=== PATIENT | female | born 1950 | race Hispanic/Latino ===

== ENCOUNTER 2017-04-14 19:45 | Inpatient (IN) | payer MEDICARE, MEDICAID ==
[2017-04-14 21:14] LABS: INR-International Normal Ratio 1.1; Prothrombin Time 14.8 SEC (12.0-14.7)
[2017-04-14 21:15] LABS: PTT 36.4 SEC (22.9-36.1)
[2017-04-14 21:30] LABS: #Eosinphils 0.1 thou/uL (0.0-0.7); #Lymphocytes 0.9 thou/uL (1.20-3.40); #Monocytes 0.5 thou/uL (0.11-0.59); #Neutrophils 6.6 thou/uL (1.40-6.50); %Basophils 0.5 % (0.0-1.0); %Eosinophils 0.6 % (0.0-10.0); %Lymphocytes 11.1 % (21.0-51.0); %Monocytes 6.5 % (0.0-10.0); %Neutrophils 81.2 % (42.0-75.0); Hemoglobin 10.8 g/dL (12.0-16.0); MDiff Complete? YES; Macrocytosis MODERATE=16-30 cells (100X) (0-5/hpf); Mean Corpuscular HGB CONC 32.9 g/dL (32.0-36.0); Mean Corpuscular Hemoglobin 37.8 pg (27.0-31.0); Mean Platelet Volume 10.1 fL (7.4-10.4); PLT Morphology Comment Appears Decreased; Platelet Count 44 thou/uL (130-400); RBC Distribution Width 11.8 % (11.5-14.5); Red Blood Cell (RBC) Count 2.87 mill/uL (4.20-5.40); White Blood Cell (WBC) Count 8.1 thou/uL (4.8-10.8)
[2017-04-14 21:33] LABS: ALT (SGPT) 16 U/L (8-55); AST (SGOT) 17 U/L (5-34); Albumin 3.9 g/dL (3.4-4.8); Alkaline Phosphatase 90 U/L (40-150); Anion Gap 15 mmol/L (10-20); BUN (Urea Nitrogen) 13 mg/dL (9.8-20.1); Bilirubin, Total 1.4 mg/dL (0.2-1.2); CK (CPK) 27 U/L (29-168); Calc. Creatinine Clearance 0 mL/min (70-130); Calcium 9.3 mg/dL (7.8-10.44); Carbon Dioxide 25 mmol/L (23-31); Chloride 101 mmol/L (98-107); Estimated GFR-MDRD Greater than 90; Globulin 2.3 g/dL (2.4-3.5); Glucose 131 mg/dL (80-115); Potassium 3.9 mmol/L (3.5-5.1); Protein, Total 6.2 g/dL (6.0-8.3); Sodium 137 mmol/L (136-145)
[2017-04-14 21:33] LABS: Bilirubin Negative (Negative); Blood, Urine Negative (Negative); Clarity CLOUDY (Clear); Glucose, Urine (Dipstick) Negative (Negative); Leukocyte Small (Negative); Nitrite Positive (Negative); Protein, Urine (Dipstick) Negative (Neg-Trace); Specific Gravity, Urine 1.017 (1.002-1.036)
[2017-04-14 21:34] LABS: CKMB 1.1 ng/mL (0-6.6); Troponin I Less than 0.010 ng/mL (< 0.028)
[2017-04-14 21:39] LABS: Bacteria/HPF 4+ HPF (None Seen); Hyaline Casts/LPF 0-3 HYALINE CAST LPF (0-3 Hyaline); RBC/HPF None Seen HPF (0-3); Squamous Epithelial 0-3 HPF (0-3)
--- NOTE | 2017-04-14 22:44 | CT ---
CT BRAIN WITHOUT CONTRAST 04/14/17 HISTORY: Altered mental status, seizure. FINDINGS: Comparison made to exam of 12/26/15. Changes or cortical atrophy again seen. Ventricular size is stable. No evidence of acute infarct, hem orrhage, midline shift, or abnormal extra-axial fluid collections are noted. The bony calvarium is intact. There is an air fluid level in the left sphenoid sinus. Postop changes in the anterior wall of the right maxilla are again seen. IMPRESSION: No CT evidence of acute intracranial process. POS: [facility]
[2017-04-15 01:56] LABS: Troponin I Less than 0.010 ng/mL (< 0.028)
[2017-04-15 05:23] LABS: Troponin I Less than 0.010 ng/mL (< 0.028)
[2017-04-15] MEDS ORDERED: cefTRIAXone\\ROCEPHIN 1 GM in Sodium Chloride 0.9% 100 ML IVPB SCH (09:15)
--- NOTE | 2017-04-15 10:03 | HP ---
DATE OF ADMISSION: 04/15/2017 CHIEF COMPLAINT: Seizures. HISTORY OF PRESENT ILLNESS: This is a 66-year-old white female shelter resident with known past medical history of esophageal neoplasm with Sanders's esophagus. The patient also has a known histo ry of coronary artery disease, history of bipolar disorder with schizophrenia. The patient was noted to have a seizure last night at the shelter witnessed by shelter staff. It was a tonic cl onic type, the patient was thrashing her hands and legs and was unconscious. The patient was immedia tely brought to the ER through EMS and had a CT of the head done which was negative for any intracran ial hemorrhage. The patient did not have previous seizures according to the medical records. The pa emmanuel was noted to have a urinary tract infection with nitrite being positive. The patient was given Ativan for seizure control. The patient has been out of it since then. Today, the patient was seen in the ER, she was completely disoriented and sleeping, unable to give any history at this time. Mo st of the history is obtained by the nursing staff and the ER physicians. PAST MEDICAL HISTORY: 1. Coronary artery disease. 2. History of paranoid schizophrenia. 3. Sanders's esophagus. 4. Type 2 diabetes mellitus. 5. Depression. 6. Hypertension. 7. Hyperlipidemia. PAST SURGICAL HISTORY: 1. CABG in 2010. 2. Previous C-sections. 3. A history of aortic valve replacement. 4. Left hip surgery in 2010. FAMILY HISTORY: Known history of colon cancer in the family. This is from her medical records, unab le to confirm with a family member. SOCIAL HISTORY: The patient is an ex-smoker, quit in 2000. She had a history of heavy alcohol use, quit more than 15 years ago. She is disabled and she is in a shelter, resident of [place]. ALLERGIES: No known drug allergies. HOME MEDICATIONS: 1. Acetaminophen. 2. Bupropion 300 mg p.o. daily. 3. Buspirone 5 mg p.o. daily. 4. Calcium carbonate. 5. Cetirizine 10 mg daily. 6. Cholecalciferol 2000 units capsules daily. 7. Lisinopril 40 mg p.o. daily. 8. Ferrous sulfate 325 mg p.o. daily. 9. Insulin Glargine, unknown dose. 10. Loperamide 2 mg capsule. 11. Ondansetron, Zofran 8 mg p.o. q.6 hours p.r.n. 12. Pravastatin 40 mg p.o. at bedtime. 13. Senokot 2 tablets p.o. b.i.d. REVIEW OF SYSTEMS: Unable to obtain any review of systems, the patient is completely lethargic and w ith the effect of the Ativan. PHYSICAL EXAMINATION: VITAL SIGNS: Blood pressure is 110/80, heart rate is 78, respiratory rate 18, saturation 98% on room air. GENERAL: The patient is seen lying in the bed supine and sleeping comfortably. HEENT: Atraumatic, normocephalic. PERRLA. Extraocular movements were intact. Oral mucosa is pink a nd moist. CARDIOVASCULAR: S1, S2 normal. No murmurs, rubs or gallops. LUNGS: Bilateral air entry was equal. No wheezing, no crackles. ABDOMEN: Soft, nontender, no guarding, no rebound tenderness. Bowel sounds normal. MUSCULOSKELETAL: No calf tenderness. No pedal edema. No joint tenderness. Has emaciated appearanc e with muscle atrophy noted in the lower extremities. No calf tenderness. NEUROLOGIC: Cranial nerve examination could not be done as the patient is sleeping and with effect o f the medication. LYMPHADENOPATHY: No evidence of any lymph nodes were noted. Inguinal and cervical lymph nodes were checked. PSYCHIATRIC: The patient is lying down peacefully at this time. Otherwise, no evidence of agitation was noted. NECK: No thyromegaly. No lymphadenopathy was noted. LABORATORY DATA: Urine was positive for nitrite and positive for leukocyte esterase with WBCs and ba cteria. Potassium 3.7. Sodium is 137, potassium 3.9, chloride is 101, BUN 13, creatinine 0.6, blood sugar 13 1. Total bilirubin 1.4. INR 1.1. WBC 8.1, hemoglobin is 10.8, hematocrit 32.9, MCV is 115, platelets are 44. CT of the head was done showing no evidence of any acute intracranial hemorrhage. ASSESSMENT AND PLAN: 1. Acute seizure episode. 2. Acute urinary tract infection. 3. Anemia of iron deficiency. 4. Acute thrombocytopenia. 5. History of an esophageal neoplasm with Sanders's esophagus. 6. History of coronary artery disease. 7. History of hypertension. 8. History of type 2 diabetes mellitus. 9. History of schizophrenia. PLAN: 1. Plan is admit this patient and closely monitor. We will consult Neurology. The patient will be started on a loading dose of fosphenytoin for her weight in the range of 40-60. We will do Ativan 2 mg as needed with every seizure every 15 minutes until the seizure stops. I will closely monitor her airway to look for any evidence of aspiration. The patient has no history of previous seizures in t he past. No evidence of any hypoglycemia was reported at the time of the seizures. We will closely monitor this patient at this time. We will do an MRI of the brain with and without contrast as she h as a history of Sanders's esophagus with a neoplasm in the past. We will do seizure precautions. 2. The patient has history of urinary tract infection. We will start the patient on Rocephin 1 gram IV daily and wait for the urine cultures and sensitivities. 3. The patient has history of type 2 diabetes mellitus. She is on insulin unknown dose. Most likel y seizure could be related to hypoglycemia. We will do only sliding scale insulin at this time and a void any long-acting insulins. We will check for hemoglobin A1C. 4. History of anemia. The patient is noted to have a low hemoglobin and a high MCV. We will check for the folic acid and B12 levels. The patient has microcytic anemia and will check for iron levels. 5. The patient has thrombocytopenia with platelets of 44. We will closely monitor. Avoid any antic oagulation at this time and will repeat labs in the morning. 6. The patient has history of coronary artery disease with history of coronary artery bypass graftin g. We will monitor and look for any evidence of chest pains or any elevated troponins as much as pos sible. We will restart the patient on aspirin. The patient is not on any beta froy at this time. 7. DVT prophylaxis. SCDs and monitor. I spent 70 minutes with this patient, of this 1 hour is critical care time.
[2017-04-15] MEDS ORDERED: Ondansetron HCl/PF 4 MG/2 ML Vial IVP PRN (14:26)
[2017-04-15] MEDS ORDERED: HYDROcodone/Acetaminophen 5/325 mg Tablet PO PRN (14:26)
[2017-04-15] MEDS ORDERED: Acetaminophen 325 MG TAB PO PRN (14:26)
[2017-04-15] MEDS ORDERED: Lorazepam 2 MG/ML VIAL SLOW IVP PRN (14:26)
[2017-04-15 15:03] LABS: Amphetamine Not Detected (NotDetected); Barbiturates Screen Not Detected (NotDetected); Benzodiazepine Screen Not Detected (NotDetected); Cocaine Metabolite Screen Not Detected (NotDetected); Medtox Reader # READER 4; Methadone Not Detected (NotDetected); Methamphetamine Not Detected (NotDetected); Opiate Screen Not Detected (NotDetected); Oxycodone Screen Not Detected (NotDetected); Phencyclidine (PCP) Not Detected (NotDetected); THC/Cannabinoid Screen Not Detected (NotDetected); Tricyclic Screen Detected (NotDetected)
[2017-04-15 15:04] LABS: Medtox Control Line Valid? VALID (VALID)
[2017-04-15] MEDS: Sodium Chloride 0.9% 1,000 ML IV SCH ×2 (15:48→23:31)
[2017-04-15] MEDS: Fosphenytoin Sodium 100 MG in Sodium Chloride 0.9% 50 ML IVPB SCH (20:50)
[2017-04-15] MEDS: Famotidine/PF 20 mg/2ml Vial SLOW IVP SCH (20:51)
[2017-04-15] MEDS: Docusate 100 MG CAP PO SCH (20:53)
[2017-04-15 21:12] VITALS: BMI 19.7
[2017-04-16] MEDS ORDERED: cefTRIAXone\\ROCEPHIN 1 GM, Syringe 0.4 ML in Sterile Water 9.6 ML SLOW IVP SCH (01:00)
[2017-04-16 06:13] LABS: Anion Gap 10 mmol/L (10-20); BUN (Urea Nitrogen) 7 mg/dL (9.8-20.1); Calc. Creatinine Clearance 94 mL/min (70-130); Calcium 8.1 mg/dL (7.8-10.44); Carbon Dioxide 23 mmol/L (23-31); Chloride 113 mmol/L (98-107); Estimated GFR-MDRD Greater than 90; Glucose 84 mg/dL (80-115); Potassium 3.3 mmol/L (3.5-5.1); Sodium 143 mmol/L (136-145)
[2017-04-16 06:18] LABS: #Eosinphils 0.1 thou/uL (0.0-0.7); #Lymphocytes 1.2 thou/uL (1.20-3.40); #Monocytes 0.4 thou/uL (0.11-0.59); #Neutrophils 3.3 thou/uL (1.40-6.50); %Basophils 0.5 % (0.0-1.0); %Eosinophils 1.2 % (0.0-10.0); %Monocytes 7.6 % (0.0-10.0); %Neutrophils 66.7 % (42.0-75.0); Mean Corpuscular HGB CONC 33.8 g/dL (32.0-36.0); Mean Corpuscular Hemoglobin 39.2 pg (27.0-31.0); Platelet Count 47 thou/uL (130-400); RBC Distribution Width 11.8 % (11.5-14.5); Red Blood Cell (RBC) Count 2.55 mill/uL (4.20-5.40)
--- NOTE | 2017-04-16 08:49 | EEG ---
Referring Physician: Jimmie TROTTER EEG # [id number] TEST TYPE: ROUTINE PORTABLE INPATIENT REPORT: AN EEG USING THE INTERNATIONAL TEN-TWENTY SYSTEM OF ELECTRODE PLACEMENT WAS PERFORMED. The best waking background is a poorly maintained 8 hertz alpha frequency. The dominant frequency is low amplitude theta and some delta activity over both hemispheres. No sleep transients were seen. Photic stimulation was unremarkable. No epileptiform features were present. IMPRESSION: THIS IS AN ABNORMAL STUDY FOR THE FINDINGS OF DIFFUSE SLOWING CONSISTENT WITH A DIFFUSE ENCEPHALOPATHIC PROCESS. Advanced Manufacturing Associate: LEILANI Business Operations Manager: EEG.PRINCE REGAALDO
[2017-04-16] MEDS ORDERED: Enoxaparin Sodium 40 MG/0.4 ML SYRINGE SC SCH (09:00)
[2017-04-16 10:45] LABS: Hemoglobin A1c 5.1 % (4.0-6.0)
[2017-04-16] MEDS: Famotidine/PF 20 mg/2ml Vial SLOW IVP SCH ×2 (11:46→21:44)
[2017-04-16] MEDS: Docusate 100 MG CAP PO SCH ×2 (11:46→20:15)
[2017-04-16] MEDS ORDERED: Lorazepam 2 MG/ML VIAL SLOW IVP SCH (15:15)
[2017-04-16] MEDS: Fosphenytoin Sodium 100 MG in Sodium Chloride 0.9% 50 ML IVPB SCH (15:23)
[2017-04-16] MEDS: Sodium Chloride 0.9% 1,000 ML IV SCH ×3 (15:23→21:45)
--- NOTE | 2017-04-16 16:08 | PDOC.PN ---
- Subjective Encounter Start Date: 04/16/17 Encounter Start Time: 15:30 robert is seen today, called by nurse for Worsening mental status, Ree was alert but disoriented,. She is admitted with newe onset Seizure on Fosphenytoin , with UTI, urine cultures grwing gram Neg Rods. - Objective Resuscitation Status: Resuscitation Status FULL:Full Resuscitation MAR Reviewed: Yes Vital Signs & Weight: Vital Signs (12 hours) Temp Pulse Pulse Pulse Pulse Resp BP 04/16/17 15:45 97.5 F L 112 H 18 04/16/17 11:53 98.3 F 98 18 04/16/17 09:40 91 100 121/72 04/16/17 07:38 91 96 95 105/72 04/16/17 07:20 98.5 F 91 18 BP BP BP Pulse Ox 04/16/17 15:45 92 L 04/16/17 11:53 108/72 96 04/16/17 09:40 121/76 04/16/17 07:38 95/66 105/64 04/16/17 07:20 101/61 97 Weight Weight 129 lb 12.8 oz I&O: 04/15/17 04/16/17 04/17/17 06:59 06:59 06:59 Intake Total 3195 Balance 3195 Result Diagrams: 04/16/17 05:18 04/16/17 05:18 Additional Labs: Accuchecks 04/16/17 04/16/17 04/16/17 14:21 10:53 05:57 POC Glucose 167 H 114 H 86 04/15/17 04/15/17 04/15/17 23:35 22:07 21:00 POC Glucose 89 50 L* 52 L* Radiology Reviewed by me: Yes EKG Reviewed by me: Yes Phys Exam - Physical Examination HEENT: PERRLA, moist MMs Neck: no nodes, no JVD Respiratory: no wheezing, no rales Cardiovascular: RRR, no significant murmur Gastrointestinal: soft, non-tender Musculoskeletal: no edema, pulses present Neurological: non-focal, normal sensation Lymphatic: no nodes Skin: no rash, normal turgor Dx/Plan (1) Septic shock Code(s): A41.9 - SEPSIS, UNSPECIFIED ORGANISM; R65.21 - SEVERE SEPSIS WITH SEPTIC SHOCK Status: Acute (2) Acute UTI Code(s): N39.0 - URINARY TRACT INFECTION, SITE NOT SPECIFIED Status: Acute (3) Seizure Code(s): R56.9 - UNSPECIFIED CONVULSIONS Status: Acute (4) Hypoglycemia associated with type 2 diabetes mellitus Code(s): E11.649 - TYPE 2 DIABETES MELLITUS WITH HYPOGLYCEMIA WITHOUT COMA Status: Acute - Plan cont current plan of care, continue antibiotics, DVT proph w/lovenox Plan: - Will transfer pt to ICU, pt has low blood pressures Not responding to IV fluid bolus, Start on LEvophed 8mg/250ml tittrate to keep MAP >65 - Will consult Critical care for further care - Will change Abx to Cefepime 1gm BID, Urine cultures growing gram neg rods. - Will check lactic Acid, will do Crp and blood Cultures Repeat, - Will need to order Echo if BP do not respond to fluids and Levophed. Will then do Troponins and EKG. - Clayt had hypoglycemia now improving, will continue with SSI - Seizures, pt is Started on Fosphenytoin, Neurology consulted. pending MRI today, pt could go for it due to Drop in her BP. - Discharge Day Encounter end time: 16:15 Review of Systems - Review of Systems Other: Unable to get any ROS due to AMS - Medications/Allergies Allergies/Adverse Reactions: Allergies Allergy/AdvReac Type Severity Reaction Status Date / Time No Known Allergies Allergy Verified 04/15/17 09:53 Medications: Current Medications Acetaminophen (Tylenol) 650 mg PO Q4H PRN PRN Reason: Headache/Fever or Pain Hydrocodone Bitart/Acetaminophen ([place] 5/325) 1 tab PO Q4H PRN PRN Reason: Moderate Pain (4-6) Docusate Sodium (Colace) 100 mg PO BID [facility] Last Admin: 04/16/17 11:46 Dose: Not Given Enoxaparin Sodium (Lovenox) 40 mg SC 0900 [facility] Last Admin: 04/16/17 11:47 Dose: Not Given Famotidine (Pepcid) 20 mg SLOW IVP Q12HR [facility] Last Admin: 04/16/17 11:46 Dose: Not Given Fosphenytoin Sodium 100 mg/ (Sodium Chloride) 52 mls @ 100 mls/hr IVPB Q12HR [facility] Last Admin: 04/16/17 15:23 Dose: 52 mls Sodium Chloride (Normal Saline 0.9%) 1,000 mls @ 100 mls/hr IV .Q10H [facility] Last Admin: 04/16/17 15:23 Dose: 1,000 mls Cefepime HCl 2 gm/ Sodium (Chloride) 100 mls @ 200 mls/hr IVPB Q12HR [facility] Norepinephrine Bitartrate (Levophed) 250 mls @ 0 mls/hr IVPB INF [facility]; Titrate PRN Reason: Protocol Sodium Chloride (Normal Saline 0.9%) 1,000 mls @ 0 mls/hr IV .Q0M [facility] PRN Reason: As Directed Lorazepam (Ativan) 2 mg SLOW IVP Q15MIN PRN PRN Reason: Seizures Lorazepam (Ativan) 0.5 mg SLOW IVP NOW [facility] Stop: 04/16/17 18:00 Ondansetron HCl (Zofran) 4 mg IVP Q6H PRN PRN Reason: Nausea/Vomiting
[2017-04-16] MEDS ORDERED: Sodium Chloride 0.9% 1,000 ML IV SCH (16:15)
[2017-04-16] MEDS ORDERED: Norepinephrine 8 MG/0.9% NS 250 ML IVPB SCH (16:15)
--- NOTE | 2017-04-16 17:08 | RAD ---
FRONTAL VIEW CHEST: Comparison: 12-26-15 Indication: Sepsis. FINDINGS: There is patchy left basilar opacity. There is prominence of the perihilar regions bilaterally. Cardi omediastinal silhouette remains prominent. Stable deformities of the ribs bilaterally are present. No additional significant interval change. IMPRESSION: 1. Pleural and parenchymal density at the left hemithorax indicating pleural fluid, atelectasis, or p neumonia. 2. Bilateral prominence of each perihilar region could be on the basis of edema. Underlying soft tiss ue pathology is not entirely excluded. 3. Recommend continued imaging follow up to confirm resolution. POS: [facility]
[2017-04-16 18:18] LABS: #Lymphocytes 0.5 thou/uL (1.20-3.40); #Monocytes 0.5 thou/uL (0.11-0.59); #Neutrophils 8.2 thou/uL (1.40-6.50); %Basophils 0.1 % (0.0-1.0); %Eosinophils 0.3 % (0.0-10.0); %Lymphocytes 5.5 % (21.0-51.0); %Monocytes 5.6 % (0.0-10.0); %Neutrophils 88.5 % (42.0-75.0); Hemoglobin 9.7 g/dL (12.0-16.0); Mean Corpuscular Hemoglobin 37.5 pg (27.0-31.0); Platelet Count 39 thou/uL (130-400); RBC Distribution Width 11.8 % (11.5-14.5); Red Blood Cell (RBC) Count 2.59 mill/uL (4.20-5.40); White Blood Cell (WBC) Count 9.3 thou/uL (4.8-10.8)
[2017-04-16 18:42] LABS: ALT (SGPT) 16 U/L (8-55); AST (SGOT) 19 U/L (5-34); Albumin 2.8 g/dL (3.4-4.8); Alkaline Phosphatase 64 U/L (40-150); Anion Gap 12 mmol/L (10-20); BUN (Urea Nitrogen) 12 mg/dL (9.8-20.1); CRP (Inflammatory) Less than 0.50 mg/dL (= or < 0.5); Calc. Creatinine Clearance 71 mL/min (70-130); Calcium 7.3 mg/dL (7.8-10.44); Carbon Dioxide 19 mmol/L (23-31); Chloride 117 mmol/L (98-107); Estimated GFR-MDRD 82; Globulin 1.6 g/dL (2.4-3.5); Glucose 151 mg/dL (80-115); Potassium 3.6 mmol/L (3.5-5.1); Protein, Total 4.4 g/dL (6.0-8.3); Sodium 144 mmol/L (136-145)
[2017-04-16] MEDS ORDERED: Loperamide HCl 2 MG CAP PO PRN (20:35)
[2017-04-16] MEDS ORDERED: Loperamide HCl 2 MG CAP PO SCH (20:45)
[2017-04-16] MEDS ORDERED: Cefepime 2 GM in Sodium Chloride 0.9% 100 ML IVPB SCH (21:00)
[2017-04-16] MEDS: Cefepime 2 GM, Syringe 2.5 ML in Sterile Water 10 ML SLOW IVP SCH (21:47)
--- NOTE | 2017-04-17 02:43 | CON ---
DATE OF CONSULTATION: 04/16/2017 REFERRING PHYSICIAN: Scott Macdonald MD REASON FOR CONSULTATION: New onset seizure. HISTORY OF PRESENT ILLNESS: Ms. Muniz is a pleasant 66-year-old female, who has been c onsidered for evaluation of possible seizure-like activity. History is very limited as patient is un able to provide. The social history is obtained from the patient's medical chart and nurse, who was taking care of the patient. Apparently, the patient has a history of esophageal cancer with Sanders esophagus, bipolar disorder, and schizophrenia. She is a snf resident. She was noted by a snf staff to have seizure-like activity, where she had tonic-clonic convulsions and she was unresponsive during that time. She was brought to via EMS to the emergency room. She has not had an y seizure-type activity since being admitted to the hospital. She has been transferred to the ICU fo r hypotensive episode. I am being asked to further evaluate for this seizure-type activity that resu lted in her admission. PAST MEDICAL HISTORY: Significant for history of Sanders's esophagus with esophageal cancer, hyperte nsion, hyperlipidemia, diabetes, depression, coronary artery disease, and paranoid schizophrenia. PAST SURGICAL HISTORY: Significant for CABG in 2010, C-sections, aortic valve replacement, and left hip surgery. FAMILY HISTORY: None significant. SOCIAL HISTORY: She is an ex-smoker. She has not smoked since 2000. She has a history of heavy alc ohol use, but quit more than 15 years ago. She is disabled and currently resides in the snf . MEDICATIONS: Please review MAR. ALLERGIES: No known drug allergies. REVIEW OF SYSTEMS: As mentioned in the HPI, otherwise negative. PHYSICAL EXAMINATION: VITAL SIGNS: Blood pressure of 89/49, pulse of 107, respirations of 23, O2 sats of 100% on room air, temperature of 98.2. GENERAL: Cachectic-appearing female, in no apparent distress. RESPIRATORY: Clear to auscultation bilaterally. CARDIOVASCULAR: Regular rate and rhythm. NEUROLOGICAL: Mental status: Patient is awake, alert, oriented x1. Speech and language: Fluent sp eech. Cranial nerves: Pupils are 3 mm and reactive. Visual farias are intact. External muscles ar e intact. Face appears symmetric. Tongue and uvula are midline. Motor exam showed normal tone and bulk with 5/5 strength in both lower extremities. Babinski: Plantar responses flexion bilaterally. Sensory: Sensation is intact and symmetric. Deep tendon reflexes 1+ reflex in both upper extremiti es. LABORATORY DATA: Labs are reviewed, which included CBC, CMP, TSH, ESR, CRP, urinalysis, and urine dr ug screen, which is significant for PT of 14.8, PTT of 36.4, calcium of 7.3, glucose of 167. Urinaly sis showed small leukocyte esterase and positive nitrites with 4+ bacteria and 7-10 wbc. IMAGING STUDIES: CT head without contrast was reviewed, which showed no acute intracranial abnormali ty. EEG report was reviewed, which showed diffuse slowing without any epileptiform discharges or sub transients. IMPRESSION: Altered mental status, likely metabolic encephalopathy. Ms. Muniz is a pleasant 66- year-old -[place] female, who presented with the seizure-like episode. Given that this is he r first episode, I would not recommend sending her on any antiepileptic medication. Her recent confu chad is likely metabolic encephalopathy. Continue supportive care. No further neurological workup n eeded from my standpoint. Thank you for the consultation.
[2017-04-17] MEDS: Sodium Chloride 0.9% 1,000 ML IV SCH ×3 (05:48→20:14)
--- NOTE | 2017-04-17 06:03 | CON ---
DATE OF CONSULTATION: 04/16/2017 CONSULTING PHYSICIAN: Dr. Macdonald from the Hospitalist group. REASON FOR CONSULTATION: Critical care management for hypotension. HISTORY OF PRESENT ILLNESS: This is a 66-year-old female who is currently hospitalized for treatment of seizures. She was noted to be hypotensive earlier today. She is fairly disoriented and cannot g willie me much in the way of history from what I can ascertain from the chart. She became hypotensive e arlier. She was brought to the CCU, but was found to be normotensive when she arrived. PAST MEDICAL HISTORY: 1. Coronary artery disease. 2. Paranoid schizophrenia. 3. Sanders's esophagus. 4. Diabetes mellitus type 2. 5. Depression. 6. Hypertension. 7. Hyperlipidemia. PAST SURGICAL HISTORY: 1. Coronary artery bypass grafting surgery. 2. C-sections. 3. Aortic valve replacement. 3. Left hip surgery. FAMILY MEDICAL HISTORY: Colon cancer. SOCIAL HISTORY: The patient quit smoking many years ago. Formerly abused alcohol, quit 15 years ago . Lives in a long term. ALLERGIES: None. MEDICATIONS PRIOR TO ADMISSION: Acetaminophen, bupropion, buspirone, calcium carbonate, cetirizine, Cholecalciferol, lisinopril, iron sulfate, insulin, loperamide, ondansetron, pravastatin, Senokot. REVIEW OF SYSTEMS: Twelve point review of systems cannot be obtained due the patient's disorientatio n. PHYSICAL EXAMINATION: VITAL SIGNS: Pulse 109, blood pressure 72/49, respiratory rate 27, O2 sat 94%. GENERAL: She is awake and in no distress. HEENT: Unremarkable. NECK: Without adenopathy or JVD. LUNGS: Clear without wheezing or rhonchi. CARDIOVASCULAR: S1, S2 regular. ABDOMEN: Soft. EXTREMITIES: No edema. No palpable lymphadenopathy, no skin lesions noted. LABORATORY DATA: White blood cell count 5, hemoglobin 10, hematocrit 29, platelet count 47. There i s no left shift. Sodium 143, potassium 3.3, chloride 113, CO2 of 23, BUN 7, creatinine 0.5, glucose 84. Chest x-ray from the time of admission showed no active infiltrates. ASSESSMENT: Transient hypotension -- I am not sure why she is so hypotensive unless she is dry or th is is medication reaction, perhaps to the Dilantin. The patient may also have relative adrenal insuf ficiency. PLAN: We would bolus her with fluids. I think what we are seeing is probably erroneous. Continue a ntibiotics for the time being, we will await the results of lactate.
[2017-04-17 06:11] LABS: #Lymphocytes 1.4 thou/uL (1.20-3.40); #Monocytes 0.6 thou/uL (0.11-0.59); #Neutrophils 8.7 thou/uL (1.40-6.50); %Basophils 0.4 % (0.0-1.0); %Eosinophils 0.2 % (0.0-10.0); %Lymphocytes 13.3 % (21.0-51.0); %Monocytes 5.3 % (0.0-10.0); %Neutrophils 80.9 % (42.0-75.0); Hemoglobin 8.9 g/dL (12.0-16.0); Mean Corpuscular HGB CONC 31.5 g/dL (32.0-36.0); Mean Corpuscular Hemoglobin 37.1 pg (27.0-31.0); Mean Platelet Volume 10.5 fL (7.4-10.4); Platelet Count 42 thou/uL (130-400); RBC Distribution Width 12.2 % (11.5-14.5); White Blood Cell (WBC) Count 10.7 thou/uL (4.8-10.8)
[2017-04-17 06:22] LABS: Anion Gap 11 mmol/L (10-20); BUN (Urea Nitrogen) 12 mg/dL (9.8-20.1); Calc. Creatinine Clearance 82 mL/min (70-130); Calcium 6.9 mg/dL (7.8-10.44); Carbon Dioxide 16 mmol/L (23-31); Chloride 118 mmol/L (98-107); Estimated GFR-MDRD Greater than 90; Glucose 104 mg/dL (80-115); Potassium 3.4 mmol/L (3.5-5.1); Sodium 142 mmol/L (136-145)
[2017-04-17] MEDS ORDERED: Potassium Chloride 40 MEQ in Premix Bag 1 BAG IVPB SCH (08:30)
--- NOTE | 2017-04-17 08:47 | PRG ---
DATE OF SERVICE: 04/17/2017 The patient did reasonably well overnight, still has a low blood pressure. PHYSICAL EXAMINATION: VITAL SIGNS: Temperature is 98.0, pulse 99, blood pressure 85/50, O2 sat 100%, respiratory rate 20, 24 hour intake 4696, output 1430. HEENT: Remarkable for poor dentition. NECK: No JVD. LUNGS: Clear to auscultation. CARDIOVASCULAR: S1, S2 regular. ABDOMEN: Soft. EXTREMITIES: No edema. LABORATORY DATA: Sodium 142, potassium 3.4, chloride 118, CO2 16, BUN 12, creatinine 0.6, glucose 10 4. White blood cell count 10, hematocrit 28.3, platelet count 42. Urine culture has resultant E. co li which is sensitive to everything except for ampicillin. ASSESSMENT: 1. Urosepsis. 2. Volume depletion. 3. Hypoalbuminemia. 4. Possible seizure at the time of admission. 5. No evidence of adrenal insufficiency. PLAN: 1. Reassess potential for transfer from the ICU this afternoon. 2. Given albumin. 3. Given continued low blood pressure would empirically give some steroids.
[2017-04-17] MEDS: Cefepime 2 GM, Syringe 2.5 ML in Sterile Water 10 ML SLOW IVP SCH ×2 (08:52→21:10)
[2017-04-17] MEDS: Albumin 25% 25 GM/100 ML BOT IVPB SCH ×3 (08:53→20:15)
[2017-04-17] MEDS: Famotidine/PF 20 mg/2ml Vial SLOW IVP SCH ×2 (08:54→20:15)
[2017-04-17] MEDS: Docusate 100 MG CAP PO SCH ×2 (08:54→20:15)
[2017-04-17] MEDS ORDERED: Potassium Chloride 40 MEQ in Sodium Chloride 0.9% 250 ML 250 ML IVPB SCH (10:00)
[2017-04-17] MEDS: Hydrocortisone Sod Succ/PF 100 mg/2 ml Vial IVP SCH ×2 (13:26→19:33)
--- NOTE | 2017-04-17 15:50 | PDOC.PN ---
- Subjective Encounter Start Date: 04/17/17 Encounter Start Time: 13:00 Patient is seen today, alert and oriented. no other concern snoted. Explained pt could go home tomorrow. - Objective MAR Reviewed: Yes Vital Signs & Weight: Vital Signs (12 hours) Temp Pulse Resp Pulse Ox 04/17/17 11:00 98.7 F 04/17/17 07:17 98.0 F 99 18 100 04/17/17 07:00 98.0 F 04/17/17 05:00 98.2 F Weight Admit Weight 129 lb Weight 129 lb 12.8 oz Most Recent Monitor Data Heart Rate from ECG 102 NIBP 112/58 NIBP BP-Mean 78 Respiration from ECG 21 SpO2 99 I&O: 04/16/17 04/17/17 04/18/17 06:59 06:59 06:59 Intake Total 3696 560 Output Total 1430 355 Balance 2266 205 Result Diagrams: 04/17/17 05:44 04/17/17 05:44 Additional Labs: Accuchecks 04/17/17 04/17/17 11:36 05:52 POC Glucose 162 H 99 Radiology Reviewed by me: Yes EKG Reviewed by me: Yes Phys Exam - Physical Examination HEENT: PERRLA, moist MMs Neck: no nodes, no JVD Respiratory: no wheezing, clear to auscultation bilateral Cardiovascular: RRR, no significant murmur Gastrointestinal: soft, non-tender Musculoskeletal: no edema, pulses present Neurological: non-focal, normal sensation Lymphatic: no nodes Psychiatric: normal affect, A&O x 3 Dx/Plan (1) Septic shock Code(s): A41.9 - SEPSIS, UNSPECIFIED ORGANISM; R65.21 - SEVERE SEPSIS WITH SEPTIC SHOCK Status: Acute (2) Acute UTI Code(s): N39.0 - URINARY TRACT INFECTION, SITE NOT SPECIFIED Status: Acute (3) Seizure Code(s): R56.9 - UNSPECIFIED CONVULSIONS Status: Acute (4) Hypoglycemia associated with type 2 diabetes mellitus Code(s): E11.649 - TYPE 2 DIABETES MELLITUS WITH HYPOGLYCEMIA WITHOUT COMA Status: Acute - Plan continue antibiotics, PT/OT, social and human services assistant, incentive spirometry, DVT proph w/ lovenox Plan: - Will transfer pt to regular floor., pt had low blood pressures improved with o IV fluid bolus, S - Will change Abx to rocephin 1gm daily, Urine cultures growing gram neg rods, ecoli sentive to Rocephin.. - - Echo is pending - Clayt had hypoglycemia now improving, will continue with SSI - Seizures, pt is Started on Fosphenytoin, Neurology consulted. MRI not needed per neurology, stopped Dilantin. - Discharge Day Encounter end time: 13:30 Review of Systems - Review of Systems Constitutional: weakness Eyes: negative: Pain, Vision Change, Conjunctivae Inflammation, Eyelid Inflammation, Redness, Other ENT: negative: Ear Pain, Ear Discharge, Nose Pain, Nose Discharge, Nose Congestion, Mouth Pain, Mouth Swelling, Throat Pain, Throat Swelling, Other Respiratory: negative: Cough, Dry, Shortness of Breath, Hemoptysis, SOB with Excertion, Pleuritic Pain, Sputum, Wheezing Cardiovascular: negative: chest pain, palpitations, orthopnea, paroxysmal nocturnal dyspnea, edema, light headedness, other Gastrointestinal: negative: Nausea, Vomiting, Abdominal Pain, Diarrhea, Constipation, Melena, Hematochezia, Other Genitourinary: negative: Dysuria, Frequency, Incontinence, Hematuria, Retention , Other Musculoskeletal: negative: Neck Pain, Shoulder Pain, Arm Pain, Back Pain, Hand Pain, Leg Pain, Foot Pain, Other Skin: negative: Rash, Lesions, Mariano, Bruising, Other - Medications/Allergies Allergies/Adverse Reactions: Allergies Allergy/AdvReac Type Severity Reaction Status Date / Time No Known Allergies Allergy Verified 04/15/17 09:53 Medications: Current Medications Acetaminophen (Tylenol) 650 mg PO Q4H PRN PRN Reason: Headache/Fever or Pain Hydrocodone Bitart/Acetaminophen ([place] 5/325) 1 tab PO Q4H PRN PRN Reason: Moderate Pain (4-6) Albumin Human (Albumin 25%) 25 gm IVPB 0300,0900,1500,2100 [facility] Stop: 04/18/17 03:01 Last Admin: 04/17/17 08:53 Dose: 25 gm Docusate Sodium (Colace) 100 mg PO BID [facility] Last Admin: 04/17/17 08:54 Dose: Not Given Famotidine (Pepcid) 20 mg SLOW IVP Q12HR [facility] Last Admin: 04/17/17 08:54 Dose: 20 mg Hydrocortisone Sodium Succinate (Solu-Cortef) 50 mg IVP Q6HR [facility] Stop: 04/24/17 12:01 Last Admin: 04/17/17 13:26 Dose: 50 mg Cefepime HCl 2 gm/ Syringe 2.5 (ml/ Sterile Water) 12.5 mls @ 150 mls/hr SLOW IVP BID [facility] Last Admin: 04/17/17 08:52 Dose: 12.5 mls Sodium Chloride (Normal Saline 0.9%) 1,000 mls @ 150 mls/hr IV .Q6H40M [facility] Last Admin: 04/17/17 11:01 Dose: 1,000 mls Loperamide HCl (Imodium) 2 mg PO PRN PRN PRN Reason: Diarrhea/Loose Stools Lorazepam (Ativan) 2 mg SLOW IVP Q15MIN PRN PRN Reason: Seizures Ondansetron HCl (Zofran) 4 mg IVP Q6H PRN PRN Reason: Nausea/Vomiting
--- NOTE | 2017-04-17 16:13 | MRI ---
HISTORY: Seizure disorder. Multiplanar and multisequence pre and postcontrast enhanced MRI images of the brain obtained. Images demonstrate diffuse cortical atrophy and deep white matter ischemic changes. No abnormal areas of intracranial enhancement seen. No evidence of areas of diffusion restriction seen. Exam is limite d due to patient motion. IMPRESSION: 1. Diffuse cortical atrophy. 2. Old area of stroke in the medial aspect of the right parietal lobe with some minimal areas of adjacent gliosis. This is not acute and demonstrates no evidence of diffusion restriction. 3. No definite evidence of abnormal areas of intracranial enhancement. No obvious evidence of an enhancing intracranial mass lesion seen. POS: [facility]
[2017-04-18] MEDS: Hydrocortisone Sod Succ/PF 100 mg/2 ml Vial IVP SCH ×3 (01:38→11:57)
[2017-04-18] MEDS: Albumin 25% 25 GM/100 ML BOT IVPB SCH (02:37)
[2017-04-18 06:33] LABS: #Lymphocytes 0.5 thou/uL (1.20-3.40); #Monocytes 0.2 thou/uL (0.11-0.59); #Neutrophils 6.6 thou/uL (1.40-6.50); %Eosinophils 0.1 % (0.0-10.0); %Lymphocytes 6.7 % (21.0-51.0); %Monocytes 2.5 % (0.0-10.0); %Neutrophils 90.7 % (42.0-75.0); Hemoglobin 7.9 g/dL (12.0-16.0); Mean Corpuscular HGB CONC 32.4 g/dL (32.0-36.0); Mean Corpuscular Hemoglobin 38.3 pg (27.0-31.0); Mean Platelet Volume 9.6 fL (7.4-10.4); Platelet Count 40 thou/uL (130-400); Red Blood Cell (RBC) Count 2.06 mill/uL (4.20-5.40); White Blood Cell (WBC) Count 7.3 thou/uL (4.8-10.8)
[2017-04-18 06:37] LABS: Anion Gap 14 mmol/L (10-20); BUN (Urea Nitrogen) 9 mg/dL (9.8-20.1); Calc. Creatinine Clearance 92 mL/min (70-130); Calcium 7.6 mg/dL (7.8-10.44); Carbon Dioxide 18 mmol/L (23-31); Chloride 116 mmol/L (98-107); Estimated GFR-MDRD Greater than 90; Glucose 171 mg/dL (80-115); Potassium 3.7 mmol/L (3.5-5.1); Sodium 144 mmol/L (136-145)
[2017-04-18] MEDS: Sodium Chloride 0.9% 1,000 ML IV SCH ×2 (07:57→11:56)
[2017-04-18] MEDS: Famotidine/PF 20 mg/2ml Vial SLOW IVP SCH (08:35)
[2017-04-18] MEDS: Docusate 100 MG CAP PO SCH (08:35)
[2017-04-18] MEDS ORDERED: Sterile Water 0 ML ONE (09:12)
[2017-04-18] MEDS: Cefepime 2 GM, Syringe 2.5 ML in Sterile Water 10 ML SLOW IVP SCH (09:14)
--- NOTE | 2017-04-18 09:44 | PDOC.PULPN ---
Progress Note: Subj/Obj - Subjective Date: 04/18/17 Time: 09:43 Narrative: Patient has no acute complaints - Objective Allergies/Adverse Reactions: Allergies Allergy/AdvReac Type Severity Reaction Status Date / Time No Known Allergies Allergy Verified 04/15/17 09:53 Medications: Current Medications Acetaminophen (Tylenol) 650 mg PO Q4H PRN PRN Reason: Headache/Fever or Pain Hydrocodone Bitart/Acetaminophen (Ingram 5/325) 1 tab PO Q4H PRN PRN Reason: Moderate Pain (4-6) Docusate Sodium (Colace) 100 mg PO BID [facility] Last Admin: 04/18/17 08:35 Dose: 100 mg Famotidine (Pepcid) 20 mg SLOW IVP Q12HR [facility] Last Admin: 04/18/17 08:35 Dose: 20 mg Hydrocortisone Sodium Succinate (Solu-Cortef) 50 mg IVP Q6HR [facility] Stop: 04/24/17 12:01 Last Admin: 04/18/17 05:06 Dose: 50 mg Cefepime HCl 2 gm/ Syringe 2.5 (ml/ Sterile Water) 12.5 mls @ 150 mls/hr SLOW IVP BID [facility] Last Admin: 04/18/17 09:14 Dose: 12.5 mls Sodium Chloride (Normal Saline 0.9%) 1,000 mls @ 75 mls/hr IV .[id number] [facility] Last Admin: 04/18/17 07:57 Dose: 1,000 mls Loperamide HCl (Imodium) 2 mg PO PRN PRN PRN Reason: Diarrhea/Loose Stools Lorazepam (Ativan) 2 mg SLOW IVP Q15MIN PRN PRN Reason: Seizures Ondansetron HCl (Zofran) 4 mg IVP Q6H PRN PRN Reason: Nausea/Vomiting Sodium Chloride (Flush - Normal Saline) 10 ml IVF Q12HR [facility] Last Admin: 04/18/17 08:35 Dose: Not Given Sodium Chloride (Flush - Normal Saline) 10 ml IVF PRN PRN PRN Reason: Saline Flush MAR Reviewed: Yes Vital Signs: Vital Signs Temp 97.6 F 04/18/17 08:00 Pulse 116 H 04/18/17 08:00 Resp 20 04/18/17 08:00 BP 128/81 04/18/17 08:00 Pulse Ox 91 L 04/18/17 08:00 Intake & Output 04/17/17 04/18/17 04/18/17 18:59 06:59 18:59 Intake Total 2369 Output Total 575 Balance 1794 Weight 129 lb 12.8 oz Intake: Intake, IV Amount 1919 Albumin 25% 25 gm IVPB 200 0300,0900,1500,2100 [facility] Rx#:[id number] Cefepime 2 gm Syringe 2.5 10 ml In Sterile Water 10 ml @ 150 mls/hr SLOW IVP BID [facility] Rx#:[id number] Potassium Chloride 40 meq 229 In Sodium Chloride 0.9% 250 ML 250 ml @ 67.5 mls/ hr IVPB NOW [facility] Rx#: [id number] Sodium Chloride 0.9% 1, 1480 000 ml @ 150 mls/hr IV . Q6H40M [facility] Rx#:[id number] Oral 450 Output: Output, Crawford 575 Other: Voiding Method Indwelling Catheter Indwelling Catheter # Bowel Movements 1 # Bowel Movement Diapers 1 Progress Note: Exam - Physical Exam Constitutional: NAD HEENT: PERRLA Deviation from normal: poor dentition Neck: no nodes, no JVD Deviation from normal: tachycardic without murmur Respiratory: clear to auscultation bilaterally Gastrointestinal: soft, non-tender Musculoskeletal: no edema Neurological: non-focal - Labs Result Diagrams: 04/18/17 04:55 04/18/17 04:55 Lab results: Laboratory Results - last 24 hr 04/17/17 04/17/17 04/17/17 11:36 16:59 20:49 WBC RBC Hgb Hct MCV MCH MCHC RDW Plt Count MPV Neutrophils % Neutrophils % (Manual) Lymphocytes % Monocytes % Eosinophils % Basophils % Neutrophils # Lymphocytes # Monocytes # Eosinophils # Basophils # Sodium Potassium Chloride Carbon Dioxide Anion Gap BUN Creatinine Estimated GFR (MDRD) Glucose POC Glucose 162 H 236 H 229 H Calcium 04/18/17 04/18/17 04/18/17 04:55 04:55 05:38 WBC 7.3 RBC 2.06 L Hgb 7.9 L Hct 24.3 L MCV 118.0 H MCH 38.3 H MCHC 32.4 RDW 12.0 Plt Count 40 L MPV 9.6 Neutrophils % 90.7 H Neutrophils % (Manual) Not Reportable Lymphocytes % 6.7 L Monocytes % 2.5 Eosinophils % 0.1 Basophils % 0.0 Neutrophils # 6.6 H Lymphocytes # 0.5 L Monocytes # 0.2 Eosinophils # 0.0 Basophils # 0.0 Sodium 144 Potassium 3.7 Chloride 116 H Carbon Dioxide 18 L Anion Gap 14 BUN 9 L Creatinine 0.55 L Estimated GFR (MDRD) Greater than 90 Glucose 171 H POC Glucose 172 H Calcium 7.6 L Progress Note: A/P - Problems (1) Septic shock Current Visit: Yes Status: Acute Code(s): A41.9 - SEPSIS, UNSPECIFIED ORGANISM; R65.21 - SEVERE SEPSIS WITH SEPTIC SHOCK (2) Acute UTI Current Visit: Yes Status: Acute Code(s): N39.0 - URINARY TRACT INFECTION, SITE NOT SPECIFIED (3) Seizure Current Visit: Yes Status: Acute Code(s): R56.9 - UNSPECIFIED CONVULSIONS - Time Spent with Patient Time: 50% of the time was spent in coordination of care (as documented) at patient's floor/unit and/or counseling patient. - Plan Plan: The patient is doing well from my standpoint. She is to continue her current antibiotics. Increase activity as tolerated.
--- NOTE | 2017-04-18 12:20 | DIS ---
DATE OF DISCHARGE: 04/18/2017 ADMITTING DIAGNOSIS: Acute seizure episode. DISCHARGE DIAGNOSIS: Acute seizure episode. SECONDARY DIAGNOSES: 1. Septic shock. 2. Acute urinary tract infection. 3. History of iron deficiency anemia. 4. History of hypoglycemia from type 2 diabetes mellitus. 5. History of coronary artery disease. 6. History of schizophrenia. HISTORY OF PRESENT ILLNESS/HOSPITAL COURSE: In brief, this is a 66-year-old female admitted from the retirement with a past medical history of esophageal neoplasm and Sanders's esophagus. S he presented with a seizure which was witnessed by the retirement staff and it was noted that the p atient had very low blood sugars in the 40s and 50s and she was started on 5% dextrose and closely mo nitored. She never had any further seizures. She had an EEG, which was showing signs of encephalopa thy, but no evidence of any seizure activity. Neurology was consulted who signed off as there was no evidence of further seizures. The patient was initially started on fosphenytoin and was later disco ntinued by the Neurology as the patient did not develop any seizures and no risk for seizures, so mos t likely the reason for seizures was hypoglycemia. During this hospitalization, the patient had a ur inary tract infection and she dropped her blood pressures all of a sudden and had to go into septic s hock with gram negative bacteremia. It was turned out to be Escherichia coli bacteremia. The patien t was started on IV antibiotics, and she was given IV fluid boluses, but no Levophed was started. Th e patient was then transferred back to the floor and had a PT and OT evaluation, was able to walk britton und with help. She needed further PT and OT at the retirement. The patient was stable and she was discharged home on Keflex to continue for 10 more days. PHYSICAL EXAMINATION: On date of discharge: VITAL SIGNS: Blood pressures are 128/81, heart rate is 100. Respirations 20, saturations 91%. GENERAL: The patient is moderately built and moderately nourished, does not appear to be in acute di stress at this time. She is alert and oriented x3. HEENT: Atraumatic, normocephalic. PERRLA. Extraocular muscles were intact. Oral mucosa is pink and moist. CARDIOVASCULAR: S1, S2 normal. No murmurs, rubs or gallops. LUNGS: Bilateral air entry was equal. No wheezing, no crackles. ABDOMEN: Soft, nontender, no guarding, no rebound tenderness. Bowel sounds normal. MUSCULOSKELETAL: No calf tenderness. No pedal edema. No joint tenderness, no joint swelling. SKIN: No cyanosis, no erythema, no rash, no pallor. DISCHARGE MEDICATIONS. 1. Alendronate 70 mg p.o. every 7 days. 2. Clozapine 3 tabs p.o. daily in the evening. 3. Bismuth subsalicylate. 4. Bupropion 300 mg p.o. daily. 5. Buspirone 5 mg p.o. daily. 6. Cetirizine 10 mg p.o. daily. 7. Cholecalciferol 2000 units p.o. daily. 8. Esomeprazole 40 mg p.o. daily. 9. Ferrous sulfate 325 mg p.o. daily. 10. Insulin Glargine continue with 5 units subcu in the evening. 11. Loperamide 2 mg capsule p.o. b.i.d. 12. Ondansetron 8 mg p.o. q.6h. 13. Pravastatin 40 mg p.o. at bedtime. 14. Sennoside 2 tablets p.o. b.i.d. DISCHARGE INSTRUCTIONS: Continue activity as tolerated. Advised to hold off on the morning dose of Lantus which she is on 20 units, which could have contributed to hypoglycemia. Advised to continue o n the evening dose of Lantus of 5 and slowly titrate up to keep the morning blood sugars less than 11 5. Continue activity as tolerated. The patient would benefit with PT and OT at the facility. Continue the antibiotics at least for 10 days. I spent 35 minutes with this patient the day of discharge.
[2017-04-18 12:33] VITALS: BP 108/71; TEMP 98.5
== END 2017-04-18 13:05 | DRG 871 ==
LOC: ERS 19:45 → ERHOLD 04-15 00:32 → 2SE 04-15 18:43 → CCU 04-16 16:52 → OBSVTOIN 04-16 17:09 → 2SE 04-17 17:50
PROVIDERS: ADMIT Family Medicine; ATTEND Family Medicine
DX: A41.51 Sepsis due to Escherichia coli [E. coli] (principal); R65.21 Severe sepsis with septic shock; G93.41 Metabolic encephalopathy; R64 Cachexia; E11.649 Type 2 diabetes mellitus with hypoglycemia without coma; D69.6 Thrombocytopenia, unspecified; E88.09 Other disorders of plasma-protein metabolism, not elsewhere classified; F20.9 Schizophrenia, unspecified; N39.0 Urinary tract infection, site not specified; Z68.1 Body mass index [BMI] 19.9 or less, adult; R56.9 Unspecified convulsions; E86.9 Volume depletion, unspecified; I25.10 Atherosclerotic heart disease of native coronary artery without angina pectoris; D50.9 Iron deficiency anemia, unspecified; Z79.4 Long term (current) use of insulin; I10 Essential (primary) hypertension; E78.5 Hyperlipidemia, unspecified; K22.70 Barrett's esophagus without dysplasia; F31.9 Bipolar disorder, unspecified
CPT/HCPCS: 36415; 36416; 51701; 70450; 70553; 71045; 80048; 80053; 80306; 81003; 81015; 82274; 82533; 82550; 82553; 83036; 83605; 84443; 84484; 85025; 85610; 85730; 86140; 87040; 87077; 87086; 87186; 95816; 95819; 96365; A4216; G8978-GP-CM; G8979-GP-CK; G8979-GP-CL; G8987-GO-CL; G8988-GO-CL; G8989-GO-CL; G8996-GN-CK; G8997-GN-CJ; J0692; J0696; J1650; J1720; J2060; J3480; J7050; P9047; Q2009; S0028

== ENCOUNTER 2017-04-22 00:58 | Inpatient (IN) | payer MEDICARE, MEDICAID ==
[2017-04-22 02:01] LABS: CO2 Tension 45.8 mmHg (35.0-45.0); Hematocrit-ABG 21.6 % (36.0-47.0)
[2017-04-22 02:02] LABS: Calcium, Ionized 1.2 mmol/L (1.12-1.30); Hemoglobin (Hb) 7.3 g/dL (12.0-16.0)
[2017-04-22 02:03] LABS: Analyzer IN Cardio ER; Puncture Site RRA
[2017-04-22 02:24] LABS: #Lymphocytes 0.3 thou/uL (1.20-3.40); #Monocytes 0.2 thou/uL (0.11-0.59); %Basophils 0.2 % (0.0-1.0); %Eosinophils 0.4 % (0.0-10.0); %Lymphocytes 5.7 % (21.0-51.0); %Monocytes 3.4 % (0.0-10.0); %Neutrophils 90.4 % (42.0-75.0); Hemoglobin 7.7 g/dL (12.0-16.0); Mean Corpuscular HGB CONC 32.7 g/dL (32.0-36.0); Mean Corpuscular Hemoglobin 39.1 pg (27.0-31.0); Platelet Count 55 thou/uL (130-400); RBC Distribution Width 12.1 % (11.5-14.5); Red Blood Cell (RBC) Count 1.98 mill/uL (4.20-5.40); White Blood Cell (WBC) Count 5.5 thou/uL (4.8-10.8)
[2017-04-22] MEDS ORDERED: Acetaminophen 650 MG Suppository ONE (02:25)
[2017-04-22 02:30] LABS: ALT (SGPT) 27 U/L (8-55); AST (SGOT) 30 U/L (5-34); Albumin 3.5 g/dL (3.4-4.8); Alkaline Phosphatase 60 U/L (40-150); Anion Gap 13 mmol/L (10-20); BUN (Urea Nitrogen) 12 mg/dL (9.8-20.1); Bilirubin, Total 0.9 mg/dL (0.2-1.2); Calc. Creatinine Clearance 0 mL/min (70-130); Calcium 8.2 mg/dL (7.8-10.44); Carbon Dioxide 26 mmol/L (23-31); Chloride 111 mmol/L (98-107); Estimated GFR-MDRD Greater than 90; Globulin 1.5 g/dL (2.4-3.5); Glucose 205 mg/dL (80-115); Potassium 3.4 mmol/L (3.5-5.1); Sodium 147 mmol/L (136-145)
[2017-04-22] MEDS ORDERED: Piperacillin/Tazobactam 3.375 GM in Sodium Chloride 0.9% 100 ML IVPB SCH (02:30)
[2017-04-22 02:36] LABS: CKMB 1.3 ng/mL (0-6.6); Troponin I 0.035 ng/mL (< 0.028)
[2017-04-22 02:52] LABS: Bilirubin Small (Negative); Blood, Urine Negative (Negative); Clarity CLOUDY (Clear); Glucose, Urine (Dipstick) Negative (Negative); Leukocyte Small (Negative); Nitrite Negative (Negative); Protein, Urine (Dipstick) 30 mg/dL (Neg-Trace); Specific Gravity, Urine 1.021 (1.002-1.036); pH, Urine 6.5 (5.0-9.0)
[2017-04-22 02:53] LABS: Bacteria/HPF None Seen HPF (None Seen)
[2017-04-22 02:56] LABS: Pathc Cast-AUWi Flag 2.84 (0-2.49)
[2017-04-22 02:57] LABS: Yeast-AUWi Flag 4422.6 (0-25.0)
[2017-04-22 03:02] LABS: Yeast-All Forms 4+ HPF (None Seen)
[2017-04-22 03:05] LABS: Manual Microscopic Reviewed? No Path Casts Seen; Renal Epithelial None Seen HPF (0-3); Transitional Epithelial NONE SEEN HPF (0-3); Trichomonas/HPF None Seen HPF (None Seen)
[2017-04-22 03:17] LABS: RBC/HPF 0-3 HPF (0-3)
[2017-04-22] MEDS ORDERED: Oseltamivir 6 MG/ML ORAL SUSP PER TUBE SCH (03:30)
--- NOTE | 2017-04-22 06:04 | HP ---
DATE OF ADMISSION: 04/22/2017 CHIEF COMPLAINT: Unresponsive. HISTORY OF PRESENT ILLNESS: This is a 66-year-old female with a past history of schizophrenia, coronary artery disease, diabetes mellitus with a recent admission for Escherichia coli urosepsis. She was subsequently improved and was [facility], but for the last days, she has become progressively less responsive per their staff and because of the status, has sent back to the ED. In the ED, she was found to be lethargic and during imaging, I believe it was told that she desaturated and subsequently was intubated. Initial workup is positive for the flu. Obviously, review of systems, past medical and surgical history are limited by her intubated and sedated status. PAST MEDICAL HISTORY: Coronary artery disease, schizophrenia, Sanders's esophagus, diabetes mellitus type 2, depression, hypertension, hyperlipidemia. PAST SURGICAL HISTORY: Significant for CABG in 2010, deliveries, aortic valve replacement, left hip surgery. FAMILY HISTORY: Positive for history of colon cancer. SOCIAL HISTORY: She has a history of tobacco and ethanol use that is remote. ALLERGIES: No known drug allergies. MEDICATIONS: Include clozapine, buspirone, bupropion, Senokot, pravastatin, Zofran, loperamide, Lantus, vitamin B12, vitamin D3, cetirizine, Keflex, Pepto- Bismol, Fosamax, and acetaminophen. PHYSICAL EXAMINATION: VITAL SIGNS: Vitals most recent when I was in the room, included heart rate of 100, blood pressure of mid 90s over mid 60s, satting 100% with end-tidal 40 and a recent temperature of 100.2, respiratory rate 16. GENERAL: Recently intubated and sedated, in no obvious distress. ET tube at 22. OG tube in place. HEENT: Eyes without icterus or injection. Pinna is normal. Nares patent without rhinorrhea, dry mouth. CARDIOVASCULAR: Tachycardic, regular, without murmur. No peripheral edema. LUNGS: She has diffuse inspiratory crackles and some scant expiratory wheezes. GASTROINTESTINAL: Bowel sounds positive. Nontender to palpation. No palpable organomegaly. GENITOURINARY: Deferred. MUSCULOSKELETAL: No obvious deformity, contracture, or joint swelling. NEUROLOGIC EXAM: Limited because of recent process in induction, but she does seem to move all 4 extremities. SKIN: Warm, dry. No obvious wounds or lesions. We will turn her and we will get up to the ICU to check for sacral decubitus ulcers. PSYCHIATRIC: Unable to assess at this time, she is intubated and sedated. IMAGING: Chest x-ray, my read includes an inspiratory film with bibasilar infiltrate or effusion, worse from previous admission. ET tube in appropriate position. CT head, again my read appears to be some cortical atrophy in subsequent dilation of the ventricles with no obvious bleed or acute intracranial process. EKG is not able to find down the ED. LABORATORY DATA: Include a white count of 5.5, hemoglobin 7.7, this is down from 7.9, which was discharged at her last admission. Most recent blood gas includes a pH 7.4, CO2 of 45-349. Chemistry with a sodium of 147, potassium 3.4 , chloride 116, bicarbonate 26, glucose 205. Troponin 0.035. LFTs otherwise normal with the exception of serum total protein of 5, urine today reveal protein 30, bilirubin, small leukocyte esterase, 10-20 wbc's, 7-10 squamous epithelial cells, 11-20 hyaline casts, and 4+ yeast. ECG with sinus tachycardia and RBBB. ASSESSMENT AND PLAN: A 66-year-old with: 1. Sepsis secondary to flu A with possible HAP. We will appropriately volume resuscitate her and start her on maintenance IV fluids. Empirically cover with vancomycin and Zosyn/levaquin for double coverage in light of recent hospitalization and antibiotic exposure. Blood cultures are ordered. Treat flu with Tamiflu 75 mg p.o. b.i.d. Reassess in 3 hours. Flu A, Tamiflu. Sent Procalcitonin. 2. Acute hypoxic respiratory failure secondary to the above lung protective ventilation with adequate pulmonary toilet. We will add nebs p.r.n. sedation, and extubation readiness testing later on today. 3. Elevated troponin less likely secondary to demand due to her sepsis. We will repeat. 4. Hypernatremia, likely a component of dehydration. She is being fluid resuscitated. We will recheck Hypokalemia, replete and recheck. 5. Diabetes mellitus. Restart a sliding scale insulin as we do not know her home Lantus schedule and convert to basal bolus afterward. 6. Hypertension. Hold all home medications. 7. Schizophrenia. We will hold all medications for now. 8. Coronary artery disease. We will continue aspirin and statin. 9. Thrombocytopenia, suspect sepsis induced. This was also present in the last visit. It looks like it was not present in 2016. We will discontinue Clozaril for now. 10. Deep venous thrombosis prophylaxis with sequential compression devices, pending stool occult in lieu of her thrombocytopenia. 11. Gastrointestinal pharmacologic prophylaxis to be started in the morning. 45 minutes of critical care time. SABINE
[2017-04-22] MEDS ORDERED: Sodium Chloride 0.9% 1,000 ML IV SCH ×2 (06:31→07:30)
[2017-04-22] MEDS ORDERED: Ondansetron HCl/PF 4 MG/2 ML Vial IVP PRN (06:31)
[2017-04-22] MEDS ORDERED: Lacri-Lube Opth Oint 3.5 GM TUBE EA EYE PRN (06:31)
[2017-04-22] MEDS ORDERED: Acetaminophen 325 MG/10.15 ML UDCUP PO PRN (06:31)
[2017-04-22] MEDS ORDERED: Acetaminophen 325 MG Suppository PR PRN (06:31)
[2017-04-22] MEDS ORDERED: Sedation Protocol FS ONE (06:31)
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
[2017-04-22] MEDS ORDERED: Morphine 2 MG/ML SYRINGE SLOW IVP PRN (06:41)
[2017-04-22] MEDS ORDERED: Propofol 1,000 MG/100 ML VIAL IV PRN (06:41)
[2017-04-22] MEDS ORDERED: Lorazepam 2 MG/ML VIAL SLOW IVP PRN (06:41)
[2017-04-22 07:10] LABS: CKMB 1.4 ng/mL (0-6.6); Troponin I 0.094 ng/mL (< 0.028)
--- NOTE | 2017-04-22 07:48 | CT ---
PRELIMINARY REPORT/[facility]/EMERGENCY AFTER HOURS PROCEDURE: EXAM: CT Head Without Intravenous Contrast EXAM DATE/TIME: Exam ordered 04/22/2017 3:34 AM CLINICAL HISTORY: 66 years old, female; Signs and symptoms; Altered mental status/memory loss; Other: Unresposive; Sheila ent HX: Er 11; 66 yo f presents to ed unresponsive. Nh called because pt unresponsive today. They rep ort that it is not uncommon for pt to have periods like this. TECHNIQUE: Axial computed tomography images of the head/brain without intravenous contrast. COMPARISON: No relevant prior studies available. FINDINGS: Brain: Unremarkable. No hemorrhage. No significant white matter disease. No edema. Ventricles: Unremarkable. No ventriculomegaly. Bones/joints: Unremarkable. No acute fracture. Soft tissues: Unremarkable. Sinuses: Incidental sinus mucosal thickening present. No fluid levels to indicate sinusitis. Mastoid air cells: Unremarkable as visualized. No mastoid effusion. Other findings: Generalized volume loss. IMPRESSION: No acute brain findings. Thank you for allowing us to participate in the care of your patient. Dictated and Authenticated by: Abelardo Marin MD 04/22/2017 3:47 AM Central Time ([place] & [place]) FINAL INTERPRETATION HEAD CT WITHOUT CONTRAST: 04/22/2017 COMPARISON: 04/14/2017 HISTORY: Fall, unresponsive, altered mental status. FINDINGS: I agree with the preliminary [facility] report dictated by Dr. Marin. There is postoperative hardware ass ociated with the anterior aspect of the maxillary sinus on the right. There is mild mucosal thickeni ng of bilateral ethmoid air cells. There is no displaced calvarial fracture, intracranial hemorrhage , midline shift, or mass effect. Mild cerebral volume loss, stable. IMPRESSION: No acute findings. POS: [facility]
[2017-04-22 08:30] LABS: CKMB 1.3 ng/mL (0-6.6); Troponin I 0.107 ng/mL (< 0.028)
--- NOTE | 2017-04-22 08:32 | RAD ---
SUPINE FRONTAL CHEST RADIOGRAPH: Date: 04-22-17 Comparison: History: Intubated patient, unresponsive. FINDINGS: Endotracheal tube and nasogastric tube is in place. Supine imaging provided, limiting assessment for pneumothorax and pleural fluid. There is new hazy density in bilateral perihilar regions suggesting a combination of interstitial opacity and pulmonary vascular congestion. There has been interval devel opment of interstitial and alveolar opacity within the right lung base. Dense opacity in the left bas e with blunting of the left costophrenic angle suggest stable left lower lobe consolidation/collapse and left pleural fluid. IMPRESSION: Worsening aeration bilaterally suggest pulmonary edema. Infectious pneumonitis or aspiration cannot b e excluded. Follow up imaging following treatment to document resolution advised. POS: [facility]
[2017-04-22] MEDS ORDERED: Enoxaparin Sodium 40 MG/0.4 ML SYRINGE SC SCH (09:00)
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
[2017-04-22] MEDS ORDERED: Propofol 200 MG/20 ML VIAL IV SCH (13:50)
[2017-04-22] MEDS ORDERED: Diprivan 20 ML ONE (13:53)
[2017-04-22 14:28] LABS: Legionella Urinary Ag Negative (Negative)
[2017-04-22 14:29] LABS: Strep pneumo Urine Ag NEGATIVE (NEGATIVE)
[2017-04-22] MEDS: Calcium Carbonate + Vit D 1 TAB PO SCH ×3 (14:32→21:27)
[2017-04-22] MEDS: Sodium Chloride 0.9% 1,000 ML IV SCH ×2 (14:32→16:39)
[2017-04-22] MEDS: Piperacillin/Tazobactam 4.5 GM in Sodium Chloride 0.9% 100 ML IVPB SCH ×3 (14:41→21:53)
[2017-04-22] MEDS: Vancomycin HCl 1 GM in Premix Bag 1 BAG IVPB SCH ×2 (14:41→17:50)
[2017-04-22] MEDS: Famotidine 20 MG TAB PER TUBE SCH ×2 (14:42→21:27)
[2017-04-22] MEDS ORDERED: Prevnar 13-Val Conj/PF 0.5 ML SYRINGE IM ONE (15:00)
[2017-04-22] MEDS ORDERED: FLU VACC TS2017-18 (>65YR) 0.5 ML SYRINGE IM ONE (15:00)
--- NOTE | 2017-04-22 15:00 | RAD ---
FRONTAL VIEW CHEST: COMPARISON: 04/22/17. INDICATION: Central line placement evaluation. FINDINGS: There is endotracheal tube with tip at the thoracic inlet. Enteric catheter traverses the left abdom en, below the field of view. There is a right internal jugular venous catheter which has been placed , the tip of which overlies the cavoatrial junction. Bilateral pleural effusions with adjacent atele ctasis and/or pneumonia present. There is bilateral perihilar opacification indicative of vascular c ongestion. The chest is otherwise stable. IMPRESSION: 1. Interval placement of right internal jugular venous catheter. No significant pneumothorax identi fied. 2. Bilateral pleural effusions and adjacent bibasilar parenchymal opacities. 3. Evidence of congestive heart failure. POS: [place]
--- NOTE | 2017-04-22 15:25 | PDOC.EVN ---
Event Note - Event Note Event Note: Op Note: I supervised a Right IJ CVC placement. See Resident note for details.
[2017-04-22] MEDS: Multivitamin W/ Minerals 1 TAB PO SCH (15:33)
[2017-04-22] MEDS: Ferrous Sulfate 325 MG TAB PO SCH (15:33)
[2017-04-22] MEDS: Cyanocobalamin (Vitamin B-12) 1,000 MCG TAB PO SCH (15:33)
[2017-04-22] MEDS ORDERED: Norepinephrine 8 MG/0.9% NS 250 ML IVPB SCH (16:45)
[2017-04-22] MEDS: fentaNYL Citrate/PF 2,000 MCG in Sodium Chloride 0.9% 60 ML IV SCH (18:03)
[2017-04-22 18:58] LABS: Actual Bicarbonate (HCO3v) 27 mEq/L (22-26); Base Excess 2.3 mEq/L (0 (+/- 2.5)); Chloride (ABG LAB) 107 mmol/L (98-106); Hematocrit-VBG 20.2 % (35-47); Hemoglobin (Hb) 7.1 g/dL (11.7-16.1); Potassium - ABG Lab 2.6 mmol/L (3.70-5.30)
[2017-04-22] MEDS ORDERED: INSULIN GLARGINE 5 UNIT PO SCH (21:00)
[2017-04-22] MEDS: Atorvastatin Calcium 10 MG TAB PO SCH (21:53)
[2017-04-22] MEDS: Insulin Detemir 100 UNITS/ML 5 UNITS in Pre-Filled Syringe 1 EACH SC SCH (22:00)
[2017-04-22] MEDS: Oseltamivir 6 MG/ML ORAL SUSP PO SCH (22:22)
--- NOTE | 2017-04-22 23:37 | OP-2 ---
ULTRASOUND GUIDED INTERNAL JUGULAR CENTRAL LINE INDICATION: Peristent hypotension despite adequate fluid resuscitation. PROCEDURE LIVESTOCK YARD ATTENDANT: Mike New M.D., Hong Espinal MD ATTENDING PHYSICIAN: Ko Carlos M.D. CONSENT: Patient unresponsive, emergently performed. PROCEDURE SUMMARY: A timeout was performed. My hands were washed nearly prior to the procedure. I wore a surgical cap, mask with protected eyewear, full gown , sterile gloves throughout the procedure. The patient was placed in Trendelenburg position. Right chest and neck region was prepped using chlorhexidine scrub and draped in sterile fashion using three-quarter sheath drape and sterile towels. The medial and lateral heads of the sternocleidomastoid muscle were identified as was the carotid pulse. The internal jugular vein was identified using the ultrasound. Using real time ultrasound guidance, introducer needle was inserted into the internal jugular vein under direct ultrasound visualization. Venous blood was withdrawn. The syringe was removed and guidewire was advanced through the introducer needle. The guidewire was visualized in the internal jugular vein by ultrasound. A small incision was made at the skin surface with the scalpel. An introducer needle was exchanged for dilator on the guidewire. After appropriate dilation was obtained, the dilator was exchanged over the wire for a central venous catheter. The wire was removed and catheter was sutured in place at 15 cm. A sterile sorbashield shield was placed over the catheter at the insertion site. The catheter was then sutured in place 5 cm above the insertion at the neck. The patient tolerated the procedure well without any hemodynamic compromise. At the time of procedure completion, all ports were aspirated and flushed appropriately. Post-procedure chest x-ray shows proper placement at this time. Estimated blood loss is minimal. MTDD
[2017-04-23] MEDS: Sodium Chloride 0.9% 1,000 ML IV SCH ×3 (00:27→14:38)
[2017-04-23] MEDS: Vancomycin HCl 1 GM in Premix Bag 1 BAG IVPB SCH ×3 (02:13→18:19)
[2017-04-23] MEDS: Piperacillin/Tazobactam 4.5 GM in Sodium Chloride 0.9% 100 ML IVPB SCH ×4 (03:43→21:15)
[2017-04-23 04:13] LABS: Band 9 % (5-11); Hemoglobin 7.3 g/dL (12.0-16.0); Lymphocytes 4 % (21-51); MDiff Complete? YES; Mean Corpuscular HGB CONC 31.8 g/dL (32.0-36.0); Mean Corpuscular Hemoglobin 37.2 pg (27.0-31.0); Mean Platelet Volume 10.4 fL (7.4-10.4); Neutrophil 87 % (42-75); PLT Morphology Comment Appears Decreased; Platelet Count 51 thou/uL (130-400); RBC Distribution Width 12.6 % (11.5-14.5); Red Blood Cell (RBC) Count 1.95 mill/uL (4.20-5.40); White Blood Cell (WBC) Count 4.9 thou/uL (4.8-10.8)
[2017-04-23 04:22] LABS: Anion Gap 9 mmol/L (10-20); BUN (Urea Nitrogen) 12 mg/dL (9.8-20.1); Calc. Creatinine Clearance 107 mL/min (70-130); Calcium 7.4 mg/dL (7.8-10.44); Carbon Dioxide 25 mmol/L (23-31); Chloride 112 mmol/L (98-107); Estimated GFR-MDRD Greater than 90; Glucose 191 mg/dL (80-115); Potassium 3.1 mmol/L (3.5-5.1); Sodium 143 mmol/L (136-145)
[2017-04-23] MEDS ORDERED: Potassium Chloride 40 MEQ in Premix Bag 1 BAG IVPB SCH (07:30)
--- NOTE | 2017-04-23 08:10 | PDOC.PULCC ---
CCU Progress Note: Subj/Obj - Subjective Date: 04/23/17 Time: 08:08 Subjective: Intubated and sedated - Objective Allergies/Adverse Reactions: Allergies Allergy/AdvReac Type Severity Reaction Status Date / Time No Known Allergies Allergy Verified 04/15/17 09:53 Medications: Current Medications Acetaminophen (Tylenol Elixir) 650 mg PO Q6H PRN PRN Reason: Fever > 101 or Mild Pain Acetaminophen (Tylenol) 650 mg VA Q6H PRN PRN Reason: Fever > 101 or Mild Pain Albuterol/Ipratropium (Duoneb) 3 ml NEB [id number] [facility] Last Admin: 04/23/17 07:20 Dose: 3 ml Atorvastatin Calcium (Lipitor) 10 mg PO HS [facility] Last Admin: 04/22/17 21:53 Dose: 10 mg Calcium/Vitamin D (Caltrate 600 + Vit D) 1 tab PO TID [facility] Last Admin: 04/22/17 21:27 Dose: 1 tab Cholecalciferol (Vitamin D3) 2,000 units PO DAILY [facility] Last Admin: 04/22/17 15:32 Dose: 2,000 units Cyanocobalamin (Vitamin B-12) 1,000 mcg PO DAILY [facility] Last Admin: 04/22/17 15:33 Dose: 1,000 mcg Famotidine (Pepcid) 20 mg PER TUBE BID [facility] Last Admin: 04/22/17 21:27 Dose: 20 mg Ferrous Sulfate (Feosol) 325 mg PO DAILY [facility] Last Admin: 04/22/17 15:33 Dose: 325 mg Levofloxacin 750 mg/ Device 150 mls @ 100 mls/hr IVPB 0900 [facility] Last Admin: 04/22/17 14:54 Dose: Not Given Piperacillin Sod/Tazobactam (Sod 4.5 gm/ Sodium Chloride) 100 mls @ 200 mls/hr IVPB 0300,0900,1500,2100 [facility] Last Admin: 04/23/17 03:43 Dose: 100 mls Insulin Detemir 5 units/ (Miscellaneous Medication) 0.05 mls @ 0 mls/hr SC HS [facility] Last Admin: 04/22/17 22:00 Dose: Not Given Fentanyl Citrate 2,000 mcg/ (Sodium Chloride) 100 mls @ 0 mls/hr IV INF [facility]; Per Protocol PRN Reason: Protocol Stop: 05/22/17 06:41 Last Admin: 04/22/17 18:03 Dose: 100 mls Fentanyl Citrate (Fentanyl Bolus) 250 mls @ 0 mls/hr IVPB PRN PRN; As Directed PRN Reason: Breakthrough pain Stop: 05/22/17 06:41 Vancomycin HCl 1 gm/ Device 200 mls @ 200 mls/hr IVPB 0200,1000,1800 [facility] Last Admin: 04/23/17 02:13 Dose: 200 mls Sodium Chloride (Normal Saline 0.9%) 1,000 mls @ 125 mls/hr IV .Q8H [facility] Last Admin: 04/23/17 00:27 Dose: 1,000 mls Norepinephrine Bitartrate (Levophed) 250 mls @ 0 mls/hr IVPB INF [facility]; Titrate PRN Reason: Protocol Last Admin: 04/22/17 18:32 Dose: 250 mls Potassium Chloride 40 meq/ (Device) 100 mls @ 25 mls/hr IVPB NOW [facility] Stop: 04/23/17 10:00 Iron/Minerals/Multivitamins (Theragran M) 1 tab PO DAILY [facility] Last Admin: 04/22/17 15:33 Dose: 1 tab Lorazepam (Ativan) 2 mg SLOW IVP Q2H PRN PRN Reason: Anxiety to achieve Leiva 2-3 Stop: 05/22/17 06:41 Methylprednisolone Sodium Succinate (Solu-Medrol) 20 mg IVP Q6HR [facility] Last Admin: 04/23/17 05:44 Dose: 20 mg Mineral Oil/White Petrolatum (Lacri-Lube Ointment) 0 gm EA EYE PRN PRN PRN Reason: Dry Eyes Miscellaneous Medication (Pharmacy To Dose) 1 each IVPB PRN PRN PRN Reason: Pharmacy to dose Morphine Sulfate (Morphine) 2 mg SLOW IVP Q2H PRN PRN Reason: Breakthrough pain Stop: 05/22/17 06:41 Ondansetron HCl (Zofran) 4 mg IVP Q6H PRN PRN Reason: Nausea/Vomiting Oseltamivir Phosphate (Tamiflu) 75 mg PO BID [facility] Last Admin: 04/22/17 22:22 Dose: 75 mg Propofol (Diprivan) 1,000 mg IV INF PRN; Protocol PRN Reason: TO ACHIEVE LEIVA SCORE 2-3 Stop: 05/22/17 06:41 MAR Reviewed: Yes Vital Signs and I&O: Vital Signs Temp 101.2 F H 04/23/17 07:00 Pulse 81 04/23/17 07:20 Resp 14 04/23/17 06:00 BP 112/60 04/23/17 07:20 Pulse Ox 100 04/22/17 20:00 Intake & Output 04/22/17 04/23/17 04/23/17 18:59 06:59 18:59 Intake Total 870 1520 Output Total 911 805 40 Balance -41 715 -40 Weight 144 lb 6.444 oz 145 lb 4.554 oz Intake: Intake, IV Amount 630 1520 Norepinephrine 8 MG/0.9% 33 NS 250 ml @ Titrate IVPB INF [facility] Rx#:[id number] Sodium Chloride 0.9% 1, 630 1487 000 ml @ 125 mls/hr IV . Q8H [facility] Rx#:[id number] Tube Irrigant 240 Output: Output, [place] 911 805 40 Other: Voiding Method Indwelling Catheter Indwelling Catheter # Bowel Movements 1 Vent Setting: SIMV 14/500/peep5/ps10/40% Spontaneous Breathing Test: not done CCU Progress Note: Exam - Physical Exam Constitutional: NAD HEENT: PERRLA, sclera anicteric Neck: no nodes, no JVD Cardiovascular: RRR Respiratory: rales Gastrointestinal: soft, non-tender Musculoskeletal: no edema Neurological: non-focal, moves all 4 limbs Lymphatic: no nodes Skin: no rash - Labs Result Diagrams: 04/23/17 03:30 04/23/17 03:30 Lab results: Laboratory Results - last 24 hr 04/22/17 04/22/17 04/22/17 06:35 08:02 15:55 WBC RBC Hgb Hct MCV MCH MCHC RDW Plt Count MPV Neutrophils % (Manual) Band Neuts % (Manual) Lymphocytes % (Manual) Plt Morphology Comment VBG pH VBG pCO2 VBG pO2 VBG HCO3 VBG O2 Sat ([place]) VBG Base Excess VBG Hematocrit VBG Hemoglobin VBG Carboxyhemoglobin VBG Methemoglobin Sodium Whole Bld Sodium Potassium Whole Bld Potassium Chloride Whole Bld Chloride Carbon Dioxide Anion Gap BUN Creatinine Estimated GFR (MDRD) Glucose POC Glucose 97 Calcium Whole Bld Ioniz Calcium CK-MB (CK-2) 1.3 Troponin I 0.107 H B-Natriuretic Peptide 475.4 H Vancomycin Trough 04/22/17 04/22/17 04/23/17 18:50 22:00 00:58 WBC RBC Hgb Hct MCV MCH MCHC RDW Plt Count MPV Neutrophils % (Manual) Band Neuts % (Manual) Lymphocytes % (Manual) Plt Morphology Comment VBG pH 7.40 VBG pCO2 40.2 L VBG pO2 47.4 H VBG HCO3 27 H VBG O2 Sat ([place]) 78.9 VBG Base Excess 2.3 VBG Hematocrit 20.2 L VBG Hemoglobin 7.1 L VBG Carboxyhemoglobin 77.1 H VBG Methemoglobin 0.4 Sodium Whole Bld Sodium 145.0 Potassium Whole Bld Potassium 2.6 L Chloride Whole Bld Chloride 107 H Carbon Dioxide Anion Gap BUN Creatinine Estimated GFR (MDRD) Glucose POC Glucose 135 H Calcium Whole Bld Ioniz Calcium 1.10 L CK-MB (CK-2) Troponin I B-Natriuretic Peptide Vancomycin Trough 10.0 04/23/17 04/23/17 03:30 03:30 WBC 4.9 RBC 1.95 L Hgb 7.3 L Hct 22.9 L MCV 117.0 H MCH 37.2 H MCHC 31.8 L RDW 12.6 Plt Count 51 L MPV 10.4 Neutrophils % (Manual) 87 H Band Neuts % (Manual) 9 Lymphocytes % (Manual) 4 L Plt Morphology Comment Appears Decreased L VBG pH VBG pCO2 VBG pO2 VBG HCO3 VBG O2 Sat ([place]) VBG Base Excess VBG Hematocrit VBG Hemoglobin VBG Carboxyhemoglobin VBG Methemoglobin Sodium 143 Whole Bld Sodium Potassium 3.1 L Whole Bld Potassium Chloride 112 H Whole Bld Chloride Carbon Dioxide 25 Anion Gap 9 L BUN 12 Creatinine 0.53 L Estimated GFR (MDRD) Greater than 90 Glucose 191 H POC Glucose Calcium 7.4 L Whole Bld Ioniz Calcium CK-MB (CK-2) Troponin I B-Natriuretic Peptide Vancomycin Trough CCU Progress Note: A/P - Problems (1) Acute respiratory failure with hypoxia and hypercapnia Current Visit: Yes Status: Acute Code(s): J96.01 - ACUTE RESPIRATORY FAILURE WITH HYPOXIA; J96.02 - ACUTE RESPIRATORY FAILURE WITH HYPERCAPNIA (2) Influenza A Current Visit: Yes Status: Acute Code(s): J10.1 - FLU DUE TO OTH IDENT INFLUENZA VIRUS W OTH RESP MANIFEST (3) Septic shock Current Visit: No Status: Acute Code(s): A41.9 - SEPSIS, UNSPECIFIED ORGANISM; R65.21 - SEVERE SEPSIS WITH SEPTIC SHOCK - Time Spent with Patient Time: 30 min cc time - Plan Plan: Await ABG Hopefully can keep off levophed continue ABX, Tamiflu Start TF Hopefully begin weaning tomorrow
[2017-04-23] MEDS: Cyanocobalamin (Vitamin B-12) 1,000 MCG TAB PO SCH (09:16)
[2017-04-23] MEDS: Calcium Carbonate + Vit D 1 TAB PO SCH ×3 (09:16→21:14)
[2017-04-23] MEDS: Ferrous Sulfate 325 MG TAB PO SCH (09:17)
[2017-04-23] MEDS: Famotidine 20 MG TAB PER TUBE SCH ×2 (09:17→21:14)
[2017-04-23] MEDS: Multivitamin W/ Minerals 1 TAB PO SCH (09:17)
[2017-04-23] MEDS: Oseltamivir 6 MG/ML ORAL SUSP PO SCH ×2 (09:54→21:15)
--- NOTE | 2017-04-23 11:30 | PDOC.FM ---
- Subjective Subjective: Patient much improved from yesterday. No longer requiring levophed gtt. Patient awake and answering yes/no questions. - Objective MAR Reviewed: Yes Vital Signs & Weight: Vital Signs (12 hours) Temp Pulse Pulse Pulse Resp BP BP 04/23/17 10:51 100 106/64 04/23/17 10:06 97 97 120/70 04/23/17 10:00 14 04/23/17 08:00 14 04/23/17 07:53 101.2 F H 81 14 04/23/17 07:20 81 112/60 04/23/17 07:00 101.2 F H 04/23/17 06:00 14 04/23/17 04:00 99.9 F H 14 04/23/17 02:14 90 111/51 L 04/23/17 02:00 14 04/23/17 00:00 99.7 F H 14 BP Pulse Ox Pulse Ox Pulse Ox 04/23/17 10:51 04/23/17 10:06 106/64 100 100 04/23/17 10:00 04/23/17 08:00 04/23/17 07:53 100 04/23/17 07:20 04/23/17 07:00 04/23/17 06:00 04/23/17 04:00 04/23/17 02:14 04/23/17 02:00 04/23/17 00:00 Weight Weight 65.9 kg Most Recent Monitor Data Heart Rate from ECG 89 NIBP 106/50 NIBP BP-Mean 78 Respiration from ECG 14 SpO2 100 I&O: 04/22/17 04/23/17 04/24/17 06:59 06:59 06:59 Intake Total 2390 200 Output Total 1716 355 Balance 674 -155 Result Diagrams: 04/23/17 03:30 04/23/17 03:30 <Mike New - Last Filed: 04/23/17 11:28> - Objective Vital Signs & Weight: Vital Signs (12 hours) Temp Pulse Pulse Pulse Resp BP BP 04/23/17 14:35 87 109/59 L 04/23/17 14:00 14 04/23/17 13:06 98 112/58 L 04/23/17 12:00 99.6 F 14 04/23/17 10:51 100 106/64 04/23/17 10:06 97 97 120/70 04/23/17 10:00 14 04/23/17 08:00 14 04/23/17 07:53 101.2 F H 81 14 04/23/17 07:20 81 112/60 04/23/17 07:00 101.2 F H 04/23/17 06:00 14 BP Pulse Ox Pulse Ox Pulse Ox 04/23/17 14:35 04/23/17 14:00 04/23/17 13:06 04/23/17 12:00 04/23/17 10:51 04/23/17 10:06 106/64 100 100 04/23/17 10:00 04/23/17 08:00 04/23/17 07:53 100 04/23/17 07:20 04/23/17 07:00 04/23/17 06:00 Weight Admit Weight 65.771 kg Weight 65.9 kg Most Recent Monitor Data Heart Rate from ECG 127 NIBP 142/78 NIBP BP-Mean 104 Respiration from ECG 20 SpO2 100 I&O: 04/22/17 04/23/17 04/24/17 06:59 06:59 06:59 Intake Total 2390 300 Output Total 1716 600 Balance 674 -300 Result Diagrams: 04/23/17 03:30 04/23/17 03:30 <Nivia Calle - Last Filed: 04/23/17 16:22> Phys Exam - Physical Examination Constitutional: NAD HEENT: moist MMs Neck: no nodes, supple coarse rhonchi bilaterally Cardiovascular: RRR, no significant murmur Gastrointestinal: soft, no distention Neurological: normal sensation, moves all 4 limbs Psychiatric: normal affect <Mike New - Last Filed: 04/23/17 11:28> Dx/Plan (1) Acute respiratory failure with hypoxia and hypercapnia Code(s): J96.01 - ACUTE RESPIRATORY FAILURE WITH HYPOXIA; J96.02 - ACUTE RESPIRATORY FAILURE WITH HYPERCAPNIA Status: Acute Plan: Managed per pulm continue vent today and attempt weaning tomorrow (2) Influenza A Code(s): J10.1 - FLU DUE TO OTH IDENT INFLUENZA VIRUS W OTH RESP MANIFEST Status: Acute Plan: diagnosed on admission continue tamiflu (3) Hypokalemia Code(s): E87.6 - HYPOKALEMIA Status: Acute Plan: K= 3.1 today replete with 40 mEq of KCl this AM (4) Macrocytic anemia Code(s): D53.9 - NUTRITIONAL ANEMIA, UNSPECIFIED Status: Acute (5) Schizophrenia Code(s): F20.9 - SCHIZOPHRENIA, UNSPECIFIED Status: Acute Plan: continue home meds (6) Thrombocytopenia Code(s): D69.6 - THROMBOCYTOPENIA, UNSPECIFIED Status: Acute Plan: hold lovenox and continue to monitor (7) Diabetes mellitus Code(s): E11.9 - TYPE 2 DIABETES MELLITUS WITHOUT COMPLICATIONS Status: Acute Plan: accuchecks qAC/HS mild SSI - Plan Plan: Plan: -continue vent for one more day and attempt weaning tomorrow -monitor BP and MAP without pressor support -ABG this morning -begin tube feeds per dietary <Mike New - Last Filed: 04/23/17 11:28> Attending Addendum - Attending Addendum I personally evaluated the patient and discussed the management with Dr. New I agree with the History, Examination, Assessment and Plan documented above with any addition or exceptions noted below. Influenza A-tamiflu Acute hypoxic respiratory failure- cont vent Septic shock-resolved and off pressors since 2 am Hypokalemia- replace. <Nivia Calle - Last Filed: 04/23/17 16:22>
[2017-04-23] MEDS ORDERED: Dextrose 5% in Water 1,000 ML IV PRN (11:36)
[2017-04-23] MEDS ORDERED: Dextrose 50% Abboject 50 ML SYRINGE SLOW IVP PRN (11:36)
[2017-04-23] MEDS: HumaLOG 300 UNITS/3 ML VIAL SC PRN ×3 (12:15→22:24)
[2017-04-23] MEDS ORDERED: Norepinephrine 8 MG in Sodium Chloride 0.9% 250 ML 250 ML IVPB SCH (15:15)
[2017-04-23] MEDS ORDERED: Norepinephrine 8 MG/0.9% NS 250 ML IVPB SCH (15:15)
[2017-04-23 17:40] LABS: Vancomycin, Trough 14.4 ug/mL
[2017-04-23] MEDS: Insulin Detemir 100 UNITS/ML 5 UNITS in Pre-Filled Syringe 1 EACH SC SCH (21:14)
[2017-04-23] MEDS: Atorvastatin Calcium 10 MG TAB PO SCH (21:23)
[2017-04-23] MEDS: fentaNYL Citrate/PF 2,000 MCG in Sodium Chloride 0.9% 60 ML IV SCH (22:35)
[2017-04-24] MEDS: Sodium Chloride 0.9% 1,000 ML IV SCH ×4 (00:26→22:00)
[2017-04-24] MEDS: Vancomycin HCl 1 GM in Premix Bag 1 BAG IVPB SCH ×2 (02:32→10:09)
[2017-04-24] MEDS: Piperacillin/Tazobactam 4.5 GM in Sodium Chloride 0.9% 100 ML IVPB SCH ×4 (03:58→20:54)
[2017-04-24] MEDS: HumaLOG 300 UNITS/3 ML VIAL SC PRN ×4 (04:23→21:01)
[2017-04-24 05:25] LABS: Band 12 % (5-11); Lymphocytes 5 % (21-51); MDiff Complete? YES; Neutrophil 83 % (42-75); PLT Morphology Comment Appears Decreased
[2017-04-24 05:27] LABS: Anion Gap 8 mmol/L (10-20); BUN (Urea Nitrogen) 12 mg/dL (9.8-20.1); Calc. Creatinine Clearance 105 mL/min (70-130); Calcium 7.5 mg/dL (7.8-10.44); Carbon Dioxide 26 mmol/L (23-31); Chloride 113 mmol/L (98-107); Estimated GFR-MDRD Greater than 90; Glucose 260 mg/dL (80-115); Potassium 3.6 mmol/L (3.5-5.1); Sodium 143 mmol/L (136-145)
[2017-04-24 06:36] LABS: ALV-art Gradient 128.775 (0-20); Actual Bicarbonate (HCO3a) 24.4 mEq/L (22-26); Base Excess (BEa) 0.4 mEq/L (0 (+/-) 2.5); CO2 Tension 36.1 mmHg (35.0-45.0); Calcium, Ionized 1.1 mmol/L (1.12-1.30); Hematocrit-ABG 22.3 % (36.0-47.0); Hemoglobin (Hb) 7.5 g/dL (12.0-16.0); O2 Tension (PaO2) 109.3 mmHg (80.0-100.0); Puncture Site RBA; pH, Arterial 7.45 (7.35-7.45)
[2017-04-24] MEDS ORDERED: Potassium Chloride 40 MEQ in Premix Bag 1 BAG IVPB SCH (07:00)
[2017-04-24 07:45] LABS: Hemoglobin 7.7 g/dL (12.0-16.0); Macrocytosis MODERATE=16-30 cells (100X) (0-5/hpf); Mean Corpuscular HGB CONC 31.1 g/dL (32.0-36.0); Mean Corpuscular Hemoglobin 36.5 pg (27.0-31.0); Mean Platelet Volume 10.8 fL (7.4-10.4); Platelet Count 74 thou/uL (130-400); Polychromasia SLIGHT = 2-3 cells (100X) (0-2/hpf); RBC Distribution Width 12.8 % (11.5-14.5); White Blood Cell (WBC) Count 6.8 thou/uL (4.8-10.8)
[2017-04-24] MEDS: Multivitamin W/ Minerals 1 TAB PO SCH (08:49)
[2017-04-24] MEDS: Famotidine 20 MG TAB PER TUBE SCH ×2 (08:50→20:57)
[2017-04-24] MEDS: Cyanocobalamin (Vitamin B-12) 1,000 MCG TAB PO SCH (08:50)
[2017-04-24] MEDS: Calcium Carbonate + Vit D 1 TAB PO SCH ×3 (08:50→20:57)
[2017-04-24] MEDS: Ferrous Sulfate 325 MG TAB PO SCH (08:50)
--- NOTE | 2017-04-24 09:30 | PRG ---
DATE OF SERVICE: 04/24/2017 A 35 minutes critical care time. SUBJECTIVE: The patient remains intubated on mechanical ventilation. She will wake up and move arou nd without difficulty. PHYSICAL EXAMINATION: VITAL SIGNS: Temperature is 99.1 with a T-max of 99.6, pulse 98, blood pressure 109/59. A 24-hour i ntake 4061, output 287. HEENT: Unremarkable. NECK: No JVD. LUNGS: Coarse rhonchi bilaterally. CARDIOVASCULAR: S1, S2 regular, without murmur. ABDOMEN: Soft, nontender. EXTREMITIES: No clubbing, cyanosis, or edema. SKIN: No changes. LABORATORY DATA: Blood gas: pH 7.45, pCO2 36, pO2 109 on SIMV rate 14, tidal volume 500, PEEP 5, pr essure support 10, FIO2 40%. Sodium 143, potassium 3.6, chloride 113, CO2 of 26, BUN 12, creatinine 0.5, glucose 260. X-RAY FINDINGS: Chest x-ray was not done today. ASSESSMENT: 1. Acute respiratory failure requiring mechanical ventilation. 2. Influenza A. 3. Septic shock, which is improved. PLAN: 1. Spontaneous breathing trial. If she tolerates, then consider extubation. 2. I have reviewed the patient's orders in the chart. We will continue the antibiotics, antivirals. 3. Decrease IV fluid intake.
[2017-04-24] MEDS: Oseltamivir 6 MG/ML ORAL SUSP PO SCH ×2 (10:00→20:54)
--- NOTE | 2017-04-24 10:48 | PDOC.FM ---
- Subjective Subjective: Nursing reports patient was agitated overnight. She was in soft restraints this morning. Answering yes/no questions. BP appropriate, MAP not requiring pressor support - Objective MAR Reviewed: Yes Vital Signs & Weight: Vital Signs (12 hours) Temp Pulse Resp BP 04/24/17 09:00 99.3 F 04/24/17 08:14 98 04/24/17 07:03 93 113/62 04/24/17 06:00 14 04/24/17 04:00 99.1 F 14 04/24/17 02:20 84 112/69 04/24/17 02:00 14 04/24/17 00:00 99.3 F 14 04/23/17 23:00 96 111/59 L Weight Admit Weight 65.771 kg Weight 66.2 kg Most Recent Monitor Data Heart Rate from ECG 94 NIBP 116/61 NIBP BP-Mean 92 Respiration from ECG 22 SpO2 100 I&O: 04/23/17 04/24/17 04/25/17 06:59 06:59 06:59 Intake Total 2390 4061 Output Total 1716 7 215 Balance 674 1973 -215 Result Diagrams: 04/24/17 03:30 04/24/17 03:30 <Mike New - Last Filed: 04/24/17 10:43> - Objective Vital Signs & Weight: Vital Signs (12 hours) Temp Pulse Pulse Pulse Resp BP BP 04/24/17 16:00 98.5 F 04/24/17 14:11 93 23 H 04/24/17 12:36 102 H 19 04/24/17 12:00 99.7 F H 22 H 04/24/17 10:47 97 122/65 04/24/17 10:00 20 04/24/17 09:51 100 100 116/61 04/24/17 09:00 99.3 F 04/24/17 08:14 98 04/24/17 08:00 99.3 F 98 19 04/24/17 07:03 93 113/62 04/24/17 06:00 14 BP Pulse Ox Pulse Ox Pulse Ox 04/24/17 16:00 04/24/17 14:11 04/24/17 12:36 100 04/24/17 12:00 04/24/17 10:47 04/24/17 10:00 04/24/17 09:51 122/65 100 100 04/24/17 09:00 04/24/17 08:14 04/24/17 08:00 100 04/24/17 07:03 04/24/17 06:00 Weight Admit Weight 65.771 kg Weight 66.2 kg Most Recent Monitor Data Heart Rate from ECG 93 NIBP 120/67 NIBP BP-Mean 100 Respiration from ECG 19 SpO2 100 I&O: 04/23/17 04/24/17 04/25/17 06:59 06:59 06:59 Intake Total 2390 4061 1710 Output Total 1716 2087 715 Balance 674 1974 995 Result Diagrams: 04/24/17 03:30 04/24/17 03:30 <Nivia Calle - Last Filed: 04/24/17 16:30> Phys Exam - Physical Examination Constitutional: NAD HEENT: moist MMs coarse rhonchi bilaterally Cardiovascular: RRR, no significant murmur Gastrointestinal: soft, no distention Musculoskeletal: no edema Neurological: moves all 4 limbs Psychiatric: normal affect <Mike New - Last Filed: 04/24/17 10:43> Dx/Plan (1) Acute respiratory failure with hypoxia and hypercapnia Code(s): J96.01 - ACUTE RESPIRATORY FAILURE WITH HYPOXIA; J96.02 - ACUTE RESPIRATORY FAILURE WITH HYPERCAPNIA Status: Acute Plan: Managed per pulm SBT this morning with potential extubation this afternoon (2) Influenza A Code(s): J10.1 - FLU DUE TO OTH IDENT INFLUENZA VIRUS W OTH RESP MANIFEST Status: Acute Plan: diagnosed on admission continue tamiflu (3) Hypokalemia Code(s): E87.6 - HYPOKALEMIA Status: Acute Plan: K= 3.6 today replete with 40 mEq of KCl this AM (4) Macrocytic anemia Code(s): D53.9 - NUTRITIONAL ANEMIA, UNSPECIFIED Status: Acute Plan: likely 2/2 to antipsychotic medication -d/c at this time (5) Schizophrenia Code(s): F20.9 - SCHIZOPHRENIA, UNSPECIFIED Status: Acute Plan: -hold for now (6) Thrombocytopenia Code(s): D69.6 - THROMBOCYTOPENIA, UNSPECIFIED Status: Acute Plan: hold lovenox and continue to monitor (7) Diabetes mellitus Code(s): E11.9 - TYPE 2 DIABETES MELLITUS WITHOUT COMPLICATIONS Status: Acute Plan: accuchecks qAC/HS mild SSI increasing levemir - Plan Plan: Plan: -increase levemir dose -speak with [facility] about psychiatry records -continue Abx and antivirals <Mike New - Last Filed: 04/24/17 10:43> Attending Addendum - Attending Addendum I personally evaluated the patient and discussed the management with Dr. New I agree with the History, Examination, Assessment and Plan documented above with any addition or exceptions noted below. Acute hypoxic respiratory failure- wean per pulm Influenza A- continue tamiflu Sepsis- resolved- continue abx for now. May wean soon if cx negative Thromboyctopenia- improving. Differential is viral vs medication (clozapine). Schizophrenia- need to discuss medication history of clozapine with her PCP and/ or psychiatrist. <Nivia Calle - Last Filed: 04/24/17 16:30>
[2017-04-24] MEDS ORDERED: DC Sedation Protocol FS ONE (12:36)
[2017-04-24 15:19] LABS: Folate,Hemolysate 510.1 ng/mL (Not Estab.); Hematocrit 24.6 % (34.0-46.6); RBC Folate Test Component 2074 ng/mL (>498)
[2017-04-24 17:46] LABS: Vancomycin, Trough 14.1 ug/mL
[2017-04-24] MEDS: Vancomycin HCl 1.25 GM in Sodium Chloride 0.9% 250 ML 250 ML IVPB SCH (18:08)
[2017-04-24] MEDS: Atorvastatin Calcium 10 MG TAB PO SCH (20:57)
[2017-04-24] MEDS: Insulin Detemir 100 UNITS/ML 10 UNITS in Pre-Filled Syringe SC SCH (21:01)
[2017-04-25] MEDS: Piperacillin/Tazobactam 4.5 GM in Sodium Chloride 0.9% 100 ML IVPB SCH (02:18)
[2017-04-25] MEDS: Vancomycin HCl 1.25 GM in Sodium Chloride 0.9% 250 ML 250 ML IVPB SCH (02:18)
[2017-04-25] MEDS: HumaLOG 300 UNITS/3 ML VIAL SC PRN (05:06)
[2017-04-25 05:35] LABS: Anion Gap 9 mmol/L (10-20); BUN (Urea Nitrogen) 10 mg/dL (9.8-20.1); Calc. Creatinine Clearance 116 mL/min (70-130); Calcium 7.6 mg/dL (7.8-10.44); Carbon Dioxide 26 mmol/L (23-31); Chloride 113 mmol/L (98-107); Estimated GFR-MDRD Greater than 90; Glucose 178 mg/dL (80-115); Potassium 4.1 mmol/L (3.5-5.1); Sodium 144 mmol/L (136-145)
[2017-04-25 05:36] LABS: Band 4 % (5-11); Hemoglobin 8.3 g/dL (12.0-16.0); Lymphocytes 6 % (21-51); MDiff Complete? YES; Macrocytosis SLIGHT = 6-15 cells (100X) (0-5/hpf); Mean Corpuscular HGB CONC 31.4 g/dL (32.0-36.0); Mean Corpuscular Hemoglobin 37.3 pg (27.0-31.0); Mean Platelet Volume 10.4 fL (7.4-10.4); Neutrophil 90 % (42-75); PLT Morphology Comment Appears Decreased; Platelet Count 80 thou/uL (130-400); RBC Distribution Width 12.4 % (11.5-14.5); Red Blood Cell (RBC) Count 2.24 mill/uL (4.20-5.40); White Blood Cell (WBC) Count 8.8 thou/uL (4.8-10.8)
--- NOTE | 2017-04-25 07:45 | PDOC.PULCC ---
CCU Progress Note: Subj/Obj - Subjective Date: 04/25/17 Time: 07:44 Narrative: Seems to be doing well. Very demented - Objective Allergies/Adverse Reactions: Allergies Allergy/AdvReac Type Severity Reaction Status Date / Time No Known Allergies Allergy Verified 04/15/17 09:53 Medications: Current Medications Acetaminophen (Tylenol Elixir) 650 mg PO Q6H PRN PRN Reason: Fever > 101 or Mild Pain Last Admin: 04/23/17 09:54 Dose: 650 mg Acetaminophen (Tylenol) 650 mg [place] Q6H PRN PRN Reason: Fever > 101 or Mild Pain Albuterol/Ipratropium (Duoneb) 3 ml NEB [id number] [facility] Last Admin: 04/25/17 07:33 Dose: 3 ml Atorvastatin Calcium (Lipitor) 10 mg PO [facility] Last Admin: 04/24/17 20:57 Dose: Not Given Calcium/Vitamin D (Caltrate 600 + Vit D) 1 tab PO TID [facility] Last Admin: 04/24/17 20:57 Dose: Not Given Cholecalciferol (Vitamin D3) 2,000 units PO DAILY [facility] Last Admin: 04/24/17 10:30 Dose: 2,000 units Cyanocobalamin (Vitamin B-12) 1,000 mcg PO DAILY [facility] Last Admin: 04/24/17 08:50 Dose: 1,000 mcg Dextrose/Water (Dextrose 50%) 25 gm SLOW IVP PRN PRN PRN Reason: Hypoglycemia Famotidine (Pepcid) 20 mg PER TUBE BID [facility] Last Admin: 04/24/17 20:57 Dose: Not Given Ferrous Sulfate (Feosol) 325 mg PO DAILY [facility] Last Admin: 04/24/17 08:50 Dose: 325 mg Glucagon (Glucagon) 1 mg IM PRN PRN PRN Reason: Hypoglycemia Dextrose/Water (D5w) 1,000 mls @ 0 mls/hr IV .Q0M PRN; As Directed PRN Reason: Hypoglycemia Sodium Chloride (Normal Saline 0.9%) 1,000 mls @ 70 mls/hr IV .[id number] [facility] Last Admin: 04/24/17 22:00 Dose: 1,000 mls Insulin Detemir 10 units/ (Miscellaneous Medication) 0.1 mls @ 1 mls/hr SC [facility] Last Admin: 04/24/17 21:01 Dose: 0.1 mls Insulin Human Lispro (Humalog) 0 units SC .MILD SLIDING SCALE PRN PRN Reason: Mild Correctional Scale Last Admin: 04/25/17 05:06 Dose: 2 unit Iron/Minerals/Multivitamins (Theragran M) 1 tab PO DAILY [facility] Last Admin: 04/24/17 08:49 Dose: 1 tab Methylprednisolone Sodium Succinate (Solu-Medrol) 20 mg IVP Q12HR [facility] Mineral Oil/White Petrolatum (Lacri-Lube Ointment) 0 gm EA EYE PRN PRN PRN Reason: Dry Eyes Miscellaneous Medication (Pharmacy To Dose) 1 each IVPB PRN PRN PRN Reason: Pharmacy to dose Ondansetron HCl (Zofran) 4 mg IVP Q6H PRN PRN Reason: Nausea/Vomiting Oseltamivir Phosphate (Tamiflu) 75 mg PO BID [facility] Last Admin: 04/24/17 20:54 Dose: 75 mg MAR Reviewed: Yes Vital Signs and I&O: Vital Signs Temp 97.8 F 04/25/17 04:00 Pulse 97 04/25/17 07:33 Resp 21 H 04/25/17 07:33 BP 122/65 04/24/17 10:47 Pulse Ox 99 04/25/17 07:35 Intake & Output 04/24/17 04/25/17 04/25/17 18:59 06:59 18:59 Intake Total 2480 1544 Output Total 1060 2105 200 Balance 1420 -561 -200 Intake: Intake, IV Amount 2070 1454 Levofloxacin 750 mg/D5W 150 750 mg In Premix Bag 1 bag @ 100 mls/hr IVPB 0900 [facility] Rx#:[id number] Piperacillin/Tazobactam 4 100 .5 gm In Sodium Chloride 0.9% 100 ml @ 200 mls/hr IVPB 0300,0900,1500,2100 [facility] Rx#:[id number] Sodium Chloride 0.9% 1, 950 000 ml @ 125 mls/hr IV . Q8H [facility] Rx#:[id number] Sodium Chloride 0.9% 1, 570 889 000 ml @ 70 mls/hr IV . [id number] [facility] Rx#:[id number] Vancomycin HCl 1 gm In 300 Premix Bag 1 bag @ 200 mls/hr IVPB 0200,1000, 1800 [facility] Rx#:[id number] Vancomycin HCl 1.25 gm In 565 Sodium Chloride 0.9% 250 ML 250 ml @ 166.667 mls/ hr IVPB 0200,1000,1800 [facility] Rx#:[id number] Oral 0 90 Tube Feeding 360 Tube Irrigant 50 Output: Output, [place] 1060 2105 200 Other: Voiding Method Indwelling Catheter Indwelling Catheter # Bowel Movements 0 CCU Progress Note: Exam - Physical Exam Constitutional: NAD HEENT: PERRLA, sclera anicteric Neck: no JVD Cardiovascular: RRR Respiratory: rales Gastrointestinal: soft, non-tender Musculoskeletal: no edema Neurological: non-focal Deviation from normal: demented and confused Skin: no rash CCU Progress Note: Data - Labs Result Diagrams: 04/25/17 04:00 04/25/17 04:00 Lab results: Laboratory Results 04/22/17 04/23/17 04/23/17 06:57 11:28 17:10 WBC RBC Hgb Hct MCV MCH MCHC RDW Plt Count MPV Neutrophils % (Manual) Band Neuts % (Manual) Lymphocytes % (Manual) Plt Morphology Comment Polychromasia Macrocytosis Specimen Type Puncture Site Bicarbonate Actual ABG pH ABG pCO2 ABG pO2 ABG O2 Sat Calc/[place]ene ABG O2 Content ABG Base Excess ABG Hematocrit ABG Hemoglobin ABG Oxyhemoglobin ABG Carboxyhemoglobin ABG Methemoglobin A-a O2 Gradient Ionized Calcium Mode of Support Mechanical Rate Inspired O2 Tidal Volume Pressure Support PEEP or CPAP Sodium Potassium Chloride Carbon Dioxide Anion Gap BUN Creatinine Estimated GFR (MDRD) Glucose POC Glucose 249 H 217 H Calcium Folate Hemolysate 510.1 RBC Folate 2074 Hematocrit 24.6 L Vancomycin Trough 04/23/17 04/24/17 04/24/17 17:15 03:30 03:30 WBC 6.8 RBC 2.10 L Hgb 7.7 L Hct 24.7 L MCV 118.0 H MCH 36.5 H MCHC 31.1 L RDW 12.8 Plt Count 74 L MPV 10.8 H Neutrophils % (Manual) 83 H Band Neuts % (Manual) 12 H Lymphocytes % (Manual) 5 L Plt Morphology Comment Appears Decreased L Polychromasia SLIGHT = 2-3 cells Macrocytosis MODERATE=16-30 cells Specimen Type Puncture Site Bicarbonate Actual ABG pH ABG pCO2 ABG pO2 ABG O2 Sat Calc/[place] ABG O2 Content ABG Base Excess ABG Hematocrit ABG Hemoglobin ABG Oxyhemoglobin ABG Carboxyhemoglobin ABG Methemoglobin A-a O2 Gradient Ionized Calcium Mode of Support Mechanical Rate Inspired O2 Tidal Volume Pressure Support PEEP or CPAP Sodium 143 Potassium 3.6 Chloride 113 H Carbon Dioxide 26 Anion Gap 8 L BUN 12 Creatinine 0.54 L Estimated GFR (MDRD) Greater than 90 Glucose 260 H POC Glucose Calcium 7.5 L Folate Hemolysate RBC Folate Hematocrit Vancomycin Trough 14.4 04/24/17 04/24/17 04/24/17 04:06 06:29 11:13 WBC RBC Hgb Hct MCV MCH MCHC RDW Plt Count MPV Neutrophils % (Manual) Band Neuts % (Manual) Lymphocytes % (Manual) Plt Morphology Comment Polychromasia Macrocytosis Specimen Type ARTERIAL Puncture Site RBA Bicarbonate Actual 24.4 ABG pH 7.45 ABG pCO2 36.1 ABG pO2 109.3 H ABG O2 Sat Calc/[place]ilene 98.3 ABG O2 Content 10.4 L ABG Base Excess 0.4 ABG Hematocrit 22.3 L ABG Hemoglobin 7.5 L ABG Oxyhemoglobin 96.7 ABG Carboxyhemoglobin 1.2 ABG Methemoglobin 0.5 A-a O2 Gradient 128.775 H Ionized Calcium 1.1 L Mode of Support SIMV/PS Mechanical Rate 14 Inspired O2 40 Tidal Volume 500 Pressure Support 10 PEEP or CPAP 5.0 Sodium 143 Potassium 3.6 L Chloride 107 H Carbon Dioxide Anion Gap BUN Creatinine Estimated GFR (MDRD) Glucose POC Glucose 262 H 337 H Calcium Folate Hemolysate RBC Folate Hematocrit Vancomycin Trough 04/24/17 04/24/17 04/24/17 16:03 17:21 21:01 WBC RBC Hgb Hct MCV MCH MCHC RDW Plt Count MPV Neutrophils % (Manual) Band Neuts % (Manual) Lymphocytes % (Manual) Plt Morphology Comment Polychromasia Macrocytosis Specimen Type Puncture Site Bicarbonate Actual ABG pH ABG pCO2 ABG pO2 ABG O2 Sat Calc/[place] ABG O2 Content ABG Base Excess ABG Hematocrit ABG Hemoglobin ABG Oxyhemoglobin ABG Carboxyhemoglobin ABG Methemoglobin A-a O2 Gradient Ionized Calcium Mode of Support Mechanical Rate Inspired O2 Tidal Volume Pressure Support PEEP or CPAP Sodium Potassium Chloride Carbon Dioxide Anion Gap BUN Creatinine Estimated GFR (MDRD) Glucose POC Glucose 241 H 229 H Calcium Folate Hemolysate RBC Folate Hematocrit Vancomycin Trough 14.1 04/25/17 04/25/17 04/25/17 04:00 04:00 04:15 WBC 8.8 RBC 2.24 L Hgb 8.3 L Hct 26.6 L MCV 119.0 H MCH 37.3 H MCHC 31.4 L RDW 12.4 Plt Count 80 L MPV 10.4 Neutrophils % (Manual) 90 H Band Neuts % (Manual) 4 L Lymphocytes % (Manual) 6 L Plt Morphology Comment Appears Decreased L Polychromasia Macrocytosis SLIGHT = 6-15 cells Specimen Type Puncture Site Bicarbonate Actual ABG pH ABG pCO2 ABG pO2 ABG O2 Sat Calc/[place] ABG O2 Content ABG Base Excess ABG Hematocrit ABG Hemoglobin ABG Oxyhemoglobin ABG Carboxyhemoglobin ABG Methemoglobin A-a O2 Gradient Ionized Calcium Mode of Support Mechanical Rate Inspired O2 Tidal Volume Pressure Support PEEP or CPAP Sodium 144 Potassium 4.1 Chloride 113 H Carbon Dioxide 26 Anion Gap 9 L BUN 10 Creatinine 0.49 L Estimated GFR (MDRD) Greater than 90 Glucose 178 H POC Glucose 181 H Calcium 7.6 L Folate Hemolysate RBC Folate Hematocrit Vancomycin Trough - ABG Interpretation ABG Results: ABG pH 7.45 (7.35-7.45) 04/24/17 06:29 ABG pCO2 36.1 mmHg (35.0-45.0) 04/24/17 06:29 ABG O2 Sat Calc/[place]il[place] 98.3 % (94.0-100.0) 04/24/17 06:29 ABG Base Excess 0.4 mEq/L (0 (+/-) 2.5) 04/24/17 06:29 CCU Progress Note: A/P - Problems (1) Acute respiratory failure with hypoxia and hypercapnia Current Visit: Yes Status: Resolved Code(s): J96.01 - ACUTE RESPIRATORY FAILURE WITH HYPOXIA; J96.02 - ACUTE RESPIRATORY FAILURE WITH HYPERCAPNIA (2) Influenza A Current Visit: Yes Status: Acute Code(s): J10.1 - FLU DUE TO OTH IDENT INFLUENZA VIRUS W OTH RESP MANIFEST (3) Septic shock Current Visit: No Status: Resolved Code(s): A41.9 - SEPSIS, UNSPECIFIED ORGANISM; R65.21 - SEVERE SEPSIS WITH SEPTIC SHOCK - Plan Plan: Pt can transfer to medical Dc bacterial ABX coverage DC central line initiate PT
[2017-04-25] MEDS: Calcium Carbonate + Vit D 1 TAB PO SCH ×3 (09:00→20:49)
[2017-04-25] MEDS: Cyanocobalamin (Vitamin B-12) 1,000 MCG TAB PO SCH (09:00)
[2017-04-25] MEDS: Ferrous Sulfate 325 MG TAB PO SCH (09:00)
[2017-04-25] MEDS: Famotidine 20 MG TAB PER TUBE SCH ×2 (09:00→20:50)
[2017-04-25] MEDS: Multivitamin W/ Minerals 1 TAB PO SCH (09:00)
[2017-04-25] MEDS: Oseltamivir 6 MG/ML ORAL SUSP PO SCH ×2 (09:00→21:30)
--- NOTE | 2017-04-25 11:00 | PDOC.FM ---
- Subjective Subjective: Patient awake this morning. Attempting to answer questions. No acute events overnight - Objective MAR Reviewed: Yes Vital Signs & Weight: Vital Signs (12 hours) Temp Pulse Resp Pulse Ox 04/25/17 10:15 99 20 04/25/17 08:00 99.1 F 97 21 H 100 04/25/17 07:35 99 04/25/17 07:33 97 21 H 99 04/25/17 04:00 97.8 F 04/25/17 02:29 95 19 98 04/25/17 00:00 97.6 F Weight Admit Weight 65.771 kg Weight 66.2 kg Most Recent Monitor Data Heart Rate from ECG 100 NIBP 130/71 NIBP BP-Mean 98 Respiration from ECG 21 SpO2 98 I&O: 04/24/17 04/25/17 04/26/17 06:59 06:59 06:59 Intake Total 4061 4024 Output Total 2085 3160 350 Balance 1973 979 350 Result Diagrams: 04/25/17 04:00 04/25/17 04:00 <Mike New C - Last Filed: 04/25/17 10:58> - Objective Vital Signs & Weight: Vital Signs (12 hours) Temp Pulse Resp BP Pulse Ox 04/25/17 19:53 97.8 F 107 H 22 H 120/70 94 L 04/25/17 18:51 121 H 20 97 04/25/17 14:44 109 H 20 94 L 04/25/17 12:00 99.1 F 99 20 91 L 04/25/17 10:15 99 20 Weight Admit Weight 65.771 kg Weight 66.2 kg Most Recent Monitor Data Heart Rate from ECG 107 NIBP 123/70 NIBP BP-Mean 103 Respiration from ECG 26 SpO2 100 I&O: 04/24/17 04/25/17 04/26/17 06:59 06:59 06:59 Intake Total 4061 4024 780 Output Total 2080 3165 1450 Balance 1974 671 -156 Result Diagrams: 04/25/17 04:00 04/25/17 04:00 <Nivia Calle - Last Filed: 04/25/17 21:12> Phys Exam - Physical Examination Constitutional: NAD HEENT: PERRLA, sclera anicteric Neck: no nodes, supple Respiratory: no wheezing Cardiovascular: RRR, no significant murmur Gastrointestinal: soft, no distention Musculoskeletal: no edema Neurological: moves all 4 limbs <Mike New - Last Filed: 04/25/17 10:58> Dx/Plan (1) Acute respiratory failure with hypoxia and hypercapnia Code(s): J96.01 - ACUTE RESPIRATORY FAILURE WITH HYPOXIA; J96.02 - ACUTE RESPIRATORY FAILURE WITH HYPERCAPNIA Status: Resolved Plan: Managed per pulm Extubated yesterday Ventilating well, continue to monitor (2) Influenza A Code(s): J10.1 - FLU DUE TO OTH IDENT INFLUENZA VIRUS W OTH RESP MANIFEST Status: Acute Plan: diagnosed on admission continue tamiflu d/c antibiotics since all culture results are negative (3) Hypokalemia Code(s): E87.6 - HYPOKALEMIA Status: Resolved Plan: K= 4.1 resolved (4) Macrocytic anemia Code(s): D53.9 - NUTRITIONAL ANEMIA, UNSPECIFIED Status: Acute Plan: likely 2/2 to antipsychotic medication -d/c at this time (5) Schizophrenia Code(s): F20.9 - SCHIZOPHRENIA, UNSPECIFIED Status: Acute Plan: -hold for now -will attempt seroquel today pending further chart review (6) Thrombocytopenia Code(s): D69.6 - THROMBOCYTOPENIA, UNSPECIFIED Status: Acute Plan: hold lovenox and continue to monitor improving after cessation of antipsychotic medications (7) Diabetes mellitus Code(s): E11.9 - TYPE 2 DIABETES MELLITUS WITHOUT COMPLICATIONS Status: Acute Plan: accuchecks qAC/HS mild SSI restart home dosage of medications now that patient is eating - Plan Plan: Plan: -d/c antibiotics -move to medical -review chart for history of valve replacement and anticoagulant recommendations -start antipsychotic medication pending consult <Mike New - Last Filed: 04/25/17 10:58> Attending Addendum - Attending Addendum I personally evaluated the patient and discussed the management with Dr. New I agree with the History, Examination, Assessment and Plan documented above with any addition or exceptions noted below. Acute hypoxic respiratory failure secondary to influenza A- on tamiflu. extubated for 24 hours and stable on NC Schizophrenia- off clozapine secondary to anemia and thrombocytopenia- will need to restart antipsychotic soon. Dr. New to try and discuss with patients PCP and/or psychiatrist <Nivia Calle - Last Filed: 04/25/17 21:12>
[2017-04-25 13:21] VITALS: BMI 26.6
[2017-04-25] MEDS: Sodium Chloride 0.9% 1,000 ML IV SCH (14:28)
[2017-04-25] MEDS: Atorvastatin Calcium 10 MG TAB PO SCH (20:49)
[2017-04-25] MEDS: Insulin Detemir 100 UNITS/ML 10 UNITS in Pre-Filled Syringe SC SCH (20:53)
[2017-04-26 04:42] LABS: Anion Gap 13 mmol/L (10-20); BUN (Urea Nitrogen) 10 mg/dL (9.8-20.1); Calc. Creatinine Clearance 108 mL/min (70-130); Calcium 8.3 mg/dL (7.8-10.44); Carbon Dioxide 25 mmol/L (23-31); Chloride 110 mmol/L (98-107); Estimated GFR-MDRD Greater than 90; Glucose 242 mg/dL (80-115); Potassium 4.1 mmol/L (3.5-5.1); Sodium 144 mmol/L (136-145)
[2017-04-26] MEDS: Sodium Chloride 0.9% 1,000 ML IV SCH ×2 (04:51→23:30)
[2017-04-26 04:56] LABS: Band 7 % (5-11); Hemoglobin 9.1 g/dL (12.0-16.0); Lymphocytes 6 % (21-51); MDiff Complete? YES; Macrocytosis SLIGHT = 6-15 cells (100X) (0-5/hpf); Mean Corpuscular Hemoglobin 36.7 pg (27.0-31.0); Mean Platelet Volume 11.1 fL (7.4-10.4); Monocytes 1 % (0-10); Neutrophil 86 % (42-75); PLT Morphology Comment Appears Decreased; Platelet Count 63 thou/uL (130-400); RBC Distribution Width 12.5 % (11.5-14.5); Red Blood Cell (RBC) Count 2.47 mill/uL (4.20-5.40); White Blood Cell (WBC) Count 8.7 thou/uL (4.8-10.8)
[2017-04-26] MEDS: Bupropion 150 MG XL TAB PO SCH (08:57)
[2017-04-26] MEDS: Calcium Carbonate + Vit D 1 TAB PO SCH ×3 (08:58→20:06)
[2017-04-26] MEDS: Ferrous Sulfate 325 MG TAB PO SCH (08:58)
[2017-04-26] MEDS: Famotidine 20 MG TAB PER TUBE SCH ×2 (08:58→20:06)
[2017-04-26] MEDS: Oseltamivir 6 MG/ML ORAL SUSP PO SCH ×2 (08:58→20:07)
[2017-04-26] MEDS: Cyanocobalamin (Vitamin B-12) 1,000 MCG TAB PO SCH (08:58)
[2017-04-26] MEDS: busPIRone HCl 5 MG TAB PO SCH (08:58)
[2017-04-26] MEDS: Multivitamin W/ Minerals 1 TAB PO SCH (08:58)
--- NOTE | 2017-04-26 11:20 | PDOC.FM ---
- Subjective Subjective: Pt doing well overnight. Pt appropriately interactive, denies NVDC, CP, SOB. Tolerating diet. - Objective Vital Signs & Weight: Vital Signs (12 hours) Temp Pulse Resp BP Pulse Ox 04/26/17 08:00 99.4 F 100 18 92 L 04/26/17 07:22 99.4 F 100 18 135/73 92 L 04/26/17 06:33 93 16 93 L Weight Admit Weight 65.771 kg Weight 66.2 kg Most Recent Monitor Data Heart Rate from ECG 107 NIBP 123/70 NIBP BP-Mean 103 Respiration from ECG 26 SpO2 100 I&O: 04/25/17 04/26/17 04/27/17 06:59 06:59 06:59 Intake Total 4024 1020 Output Total 3165 3300 Balance 859 -2280 Result Diagrams: 04/26/17 03:52 04/26/17 03:52 Phys Exam - Physical Examination Constitutional: NAD HEENT: PERRLA, sclera anicteric, oral pharynx no lesions poor dentition Neck: no nodes Respiratory: no wheezing, no rales, no rhonchi, clear to auscultation bilateral Cardiovascular: RRR, no significant murmur, no rub Gastrointestinal: soft, non-tender, positive bowel sounds Musculoskeletal: no edema Neurological: non-focal Dx/Plan (1) Diabetes mellitus Code(s): E11.9 - TYPE 2 DIABETES MELLITUS WITHOUT COMPLICATIONS Status: Acute (2) Essential hypertension Code(s): I10 - ESSENTIAL (PRIMARY) HYPERTENSION Status: Acute (3) Influenza A Code(s): J10.1 - FLU DUE TO OTH IDENT INFLUENZA VIRUS W OTH RESP MANIFEST Status: Acute (4) Schizophrenia Code(s): F20.9 - SCHIZOPHRENIA, UNSPECIFIED Status: Acute (5) Acute respiratory failure with hypoxia and hypercapnia Code(s): J96.01 - ACUTE RESPIRATORY FAILURE WITH HYPOXIA; J96.02 - ACUTE RESPIRATORY FAILURE WITH HYPERCAPNIA Status: Resolved (6) Hypokalemia Code(s): E87.6 - HYPOKALEMIA Status: Resolved (7) Hypoglycemia associated with type 2 diabetes mellitus Code(s): E11.649 - TYPE 2 DIABETES MELLITUS WITH HYPOGLYCEMIA WITHOUT COMA Status: Acute - Plan Plan: resp failure: pulm consulted, appreciate recs overall pt improving. Continue current plan of care concerning thrombocytopenia, will hold previous psych medication and add seroquel in hopes thrombocytopenia improves
--- NOTE | 2017-04-26 18:07 | PRG ---
DATE OF SERVICE: 04/26/2017 SUBJECTIVE: Ms. Muniz says she is feeling better. OBJECTIVE: VITAL SIGNS: She is afebrile. Heart rate is 99, respiratory rate is 18, oximetry is 93% and blood p ressure 122/70. LUNGS: Clear. HEART: Regular rhythm. ABDOMEN: Soft. LABORATORY DATA: White count 8.7, hemoglobin 9.1 and platelets 63,000. Sodium 144, potassium 4.1, c hloride 110, bicarbonate 25, BUN 10 and creatinine 0.53. IMPRESSION AND PLAN: Respiratory failure with hypoxia and hypercapnia associated with influenza. Gabino munoz is doing well, status post transfer out of the Critical Care Unit in my opinion. Her steroids can be switched to the interval route in my opinion and follow with the other physicians.
[2017-04-26] MEDS: Atorvastatin Calcium 10 MG TAB PO SCH (20:06)
--- NOTE | 2017-04-26 20:22 | ADD-PRG ---
ADDENDUM DATE OF SERVICE: 04/26/2017 Please see notes of Dr. Acosta with I concur. The patient was seen, evaluated, examined and discuss ed with the resident by bedside. Basically, the patient came in and was sick from the flu and pneumo jhontaan and is however improving. Her blood sugars pretty well controlled with sliding scale and Regular insulin. I am trying to get her on a psych med other than the one she came in which is causing thro mbocytopenia. Otherwise, she is stable and can be discharged soon. It is unclear if she is going to nursing care facility or .
[2017-04-26] MEDS: Insulin Detemir 100 UNITS/ML 10 UNITS in Pre-Filled Syringe SC SCH (20:46)
[2017-04-26] MEDS ORDERED: CLOZAPINE 100 MG PO SCH (21:00)
[2017-04-27 04:38] LABS: Anion Gap 11 mmol/L (10-20); BUN (Urea Nitrogen) 7 mg/dL (9.8-20.1); Calc. Creatinine Clearance 121 mL/min (70-130); Calcium 8.2 mg/dL (7.8-10.44); Carbon Dioxide 28 mmol/L (23-31); Chloride 108 mmol/L (98-107); Estimated GFR-MDRD Greater than 90; Glucose 107 mg/dL (80-115); Sodium 144 mmol/L (136-145)
[2017-04-27 05:42] LABS: Band 2 % (5-11); Hemoglobin 8.9 g/dL (12.0-16.0); Lymphocytes 19 % (21-51); MDiff Complete? YES; Macrocytosis SLIGHT = 6-15 cells (100X) (0-5/hpf); Mean Corpuscular Hemoglobin 36.6 pg (27.0-31.0); Mean Platelet Volume 11.2 fL (7.4-10.4); Monocytes 3 % (0-10); Neutrophil 76 % (42-75); PLT Morphology Comment Appears Decreased; Platelet Count 63 thou/uL (130-400); RBC Distribution Width 12.6 % (11.5-14.5); Red Blood Cell (RBC) Count 2.43 mill/uL (4.20-5.40); White Blood Cell (WBC) Count 6.7 thou/uL (4.8-10.8)
[2017-04-27] MEDS ORDERED: Potassium Chloride 20 MEQ TAB PO SCH ×2 (07:15→11:15)
[2017-04-27] MEDS: Bupropion 150 MG XL TAB PO SCH (08:42)
[2017-04-27] MEDS: predniSONE 20 MG TAB PO SCH (08:43)
[2017-04-27] MEDS: Cyanocobalamin (Vitamin B-12) 1,000 MCG TAB PO SCH (08:43)
[2017-04-27] MEDS: busPIRone HCl 5 MG TAB PO SCH (08:43)
[2017-04-27] MEDS: Ferrous Sulfate 325 MG TAB PO SCH (08:43)
[2017-04-27] MEDS: Oseltamivir 6 MG/ML ORAL SUSP PO SCH ×2 (08:43→20:21)
[2017-04-27] MEDS: Calcium Carbonate + Vit D 1 TAB PO SCH ×3 (08:43→20:21)
[2017-04-27] MEDS: Multivitamin W/ Minerals 1 TAB PO SCH (08:43)
[2017-04-27] MEDS: Famotidine 20 MG TAB PER TUBE SCH ×2 (08:43→20:21)
--- NOTE | 2017-04-27 10:15 | RAD ---
CHEST 1 VIEW: HISTORY: Dyspnea. COMPARISON: 04/22/17. FINDINGS: Cardiac silhouette is magnified and now more obscured by increasing bilateral pleural fluid and patch y bibasilar infiltrates. Pulmonary vasculature is more engorged. Mediastinum is midline with postop erative changes. Endotracheal catheter, nasogastric tube, and right internal jugular central venous catheter are no lo nger visible. IMPRESSION: 1. Worsening pulmonary edema and pleural fluid. 2. Interval removal of the endotracheal catheter, nasogastric tube, and central venous catheter. POS: [facility]
--- NOTE | 2017-04-27 10:55 | PDOC.FM ---
- Subjective Subjective: Pt required O2 supplementation overnight, although pt denies any sob, fever, chills, nvdc, cough and chest pain. Otherwise no change since yesterday. - Objective Vital Signs & Weight: Vital Signs (12 hours) Temp Pulse Resp BP Pulse Ox 04/27/17 08:00 98.1 F 95 18 100 04/27/17 07:45 98.1 F 95 18 154/75 H 100 04/27/17 06:41 87 16 99 04/27/17 02:40 94 16 94 L Weight Admit Weight 65.771 kg Weight 65.7 kg Most Recent Monitor Data Heart Rate from ECG 107 NIBP 123/70 NIBP BP-Mean 103 Respiration from ECG 26 SpO2 100 I&O: 04/26/17 04/27/17 04/28/17 06:59 06:59 06:59 Intake Total 1020 2321 Output Total 3300 4850 Balance -0309 -9559 Result Diagrams: 04/27/17 05:11 04/27/17 04:16 Phys Exam - Physical Examination Constitutional: NAD HEENT: PERRLA Neck: no nodes, no JVD Respiratory: no rhonchi crackles in bases Cardiovascular: RRR, no significant murmur, no rub Gastrointestinal: soft, non-tender, no distention, positive bowel sounds Musculoskeletal: no edema, pulses present Neurological: non-focal, moves all 4 limbs Skin: no rash Dx/Plan (1) Diabetes mellitus Code(s): E11.9 - TYPE 2 DIABETES MELLITUS WITHOUT COMPLICATIONS Status: Acute (2) Essential hypertension Code(s): I10 - ESSENTIAL (PRIMARY) HYPERTENSION Status: Acute (3) Influenza A Code(s): J10.1 - FLU DUE TO OTH IDENT INFLUENZA VIRUS W OTH RESP MANIFEST Status: Acute (4) Schizophrenia Code(s): F20.9 - SCHIZOPHRENIA, UNSPECIFIED Status: Acute (5) Acute respiratory failure with hypoxia and hypercapnia Code(s): J96.01 - ACUTE RESPIRATORY FAILURE WITH HYPOXIA; J96.02 - ACUTE RESPIRATORY FAILURE WITH HYPERCAPNIA Status: Resolved (6) Hypokalemia Code(s): E87.6 - HYPOKALEMIA Status: Resolved (7) Hypoglycemia associated with type 2 diabetes mellitus Code(s): E11.649 - TYPE 2 DIABETES MELLITUS WITH HYPOGLYCEMIA WITHOUT COMA Status: Acute - Plan Plan: with increased o2 requirements will repeat cxr and f/u with results increase seroquel maintain sats >90% encourage use of IS
[2017-04-27] MEDS: Sodium Chloride 0.9% 1,000 ML IV SCH ×2 (12:43→23:55)
[2017-04-27 14:11] LABS: Anion Gap 14 mmol/L (10-20); BUN (Urea Nitrogen) 5 mg/dL (9.8-20.1); Calc. Creatinine Clearance 116 mL/min (70-130); Calcium 7.9 mg/dL (7.8-10.44); Carbon Dioxide 25 mmol/L (23-31); Chloride 108 mmol/L (98-107); Estimated GFR-MDRD Greater than 90; Glucose 203 mg/dL (80-115); Potassium 3.9 mmol/L (3.5-5.1); Sodium 143 mmol/L (136-145)
--- NOTE | 2017-04-27 16:16 | ADD-PRG ---
ADDENDUM DATE OF SERVICE: 04/27/2017 The patient was seen and evaluated, examined and discussed with the residents by bedside. Basically no major changes on her, still needing quite a bit oxygen and we are trying to manage her psych meds on exam thought she seemed a little bit more crackly and course in her lung especially the right side , so we will make sure we get a chest x-ray on her to make sure she does not have a superimposed infe ction and may need more antibiotics. Otherwise, continue same medications.
[2017-04-27] MEDS: HumaLOG 300 UNITS/3 ML VIAL SC PRN ×2 (17:44→20:22)
[2017-04-27] MEDS ORDERED: Furosemide 40 MG/4 ML VIAL SLOW IVP SCH (18:15)
[2017-04-27] MEDS: Atorvastatin Calcium 10 MG TAB PO SCH (20:21)
[2017-04-27] MEDS: Insulin Detemir 100 UNITS/ML 10 UNITS in Pre-Filled Syringe SC SCH (20:22)
--- NOTE | 2017-04-27 23:51 | PRG ---
DATE OF SERVICE: 04/27/2017 SUBJECTIVE: Ermelinda Muniz has no complaints. She says she is feeling little better. She is still only in bed. OBJECTIVE: VITAL SIGNS: She is afebrile, heart rate is in the 80s-90s, respiratory rate 16, oximetry is 98 on 2 liters, blood pressure 154/75. LUNGS: Clear anteriorly. HEART: Regular rhythm. ABDOMEN: Soft. LABORATORY DATA: White count 6.7, hemoglobin 8.9, platelets 63,000. Sodium 143, potassium 3.9, chloride 108, bicarbonate 25, BUN 5, creatinine 0.59. IMPRESSION: Respiratory failure with hypoxia and hypercapnia associated with the flu. She is clinic ally stable out of the ICU. She is transitioning into p.o. medications. She has no new complaints. Deconditioning and weakness are a huge factor at this point.
[2017-04-28 04:46] LABS: Anion Gap 10 mmol/L (10-20); BUN (Urea Nitrogen) 7 mg/dL (9.8-20.1); Calc. Creatinine Clearance 126 mL/min (70-130); Calcium 8.6 mg/dL (7.8-10.44); Carbon Dioxide 31 mmol/L (23-31); Chloride 106 mmol/L (98-107); Estimated GFR-MDRD Greater than 90; Glucose 84 mg/dL (80-115); Potassium 3.1 mmol/L (3.5-5.1); Sodium 144 mmol/L (136-145)
[2017-04-28 05:36] LABS: Band 4 % (5-11); Hemoglobin 9.4 g/dL (12.0-16.0); Lymphocytes 13 % (21-51); MDiff Complete? YES; Mean Corpuscular HGB CONC 31.8 g/dL (32.0-36.0); Mean Corpuscular Hemoglobin 37.4 pg (27.0-31.0); Mean Platelet Volume 11.3 fL (7.4-10.4); Monocytes 5 % (0-10); Neutrophil 78 % (42-75); PLT Morphology Comment Appears Decreased; Platelet Count 64 thou/uL (130-400); RBC Distribution Width 12.4 % (11.5-14.5); Red Blood Cell (RBC) Count 2.51 mill/uL (4.20-5.40); White Blood Cell (WBC) Count 7.7 thou/uL (4.8-10.8)
[2017-04-28] MEDS ORDERED: Potassium Chloride 20 MEQ TAB PO SCH (07:30)
[2017-04-28] MEDS: busPIRone HCl 5 MG TAB PO SCH (08:29)
[2017-04-28] MEDS: Cyanocobalamin (Vitamin B-12) 1,000 MCG TAB PO SCH (08:29)
[2017-04-28] MEDS: Ferrous Sulfate 325 MG TAB PO SCH (08:29)
[2017-04-28] MEDS: Multivitamin W/ Minerals 1 TAB PO SCH (08:30)
[2017-04-28] MEDS: Calcium Carbonate + Vit D 1 TAB PO SCH ×3 (08:30→20:49)
[2017-04-28] MEDS: Famotidine 20 MG TAB PER TUBE SCH ×2 (08:30→20:49)
[2017-04-28] MEDS: Bupropion 150 MG XL TAB PO SCH (08:30)
[2017-04-28] MEDS: predniSONE 20 MG TAB PO SCH (08:31)
--- NOTE | 2017-04-28 09:09 | PDOC.FM ---
- Subjective Subjective: Pt had no acute events. Reports she is breathing well. Denies cp, sob, nvdc. Tolerating diet. Pt cxr shows worsening edema/effusions. Pt encouraged to use IS frequently. - Objective Vital Signs & Weight: Vital Signs (12 hours) Temp Pulse Resp BP Pulse Ox 04/28/17 07:29 98.0 F 92 16 127/73 97 04/28/17 06:18 85 16 92 L 04/28/17 01:55 89 16 93 L 04/27/17 22:45 92 16 92 L Weight Admit Weight 65.771 kg Weight 65.7 kg Most Recent Monitor Data Heart Rate from ECG 107 NIBP 123/70 NIBP BP-Mean 103 Respiration from ECG 26 SpO2 100 I&O: 04/27/17 04/28/17 04/29/17 06:59 06:59 06:59 Intake Total 2321 1748 Output Total 4850 3650 Balance -8359 -8513 Result Diagrams: 04/28/17 03:45 04/28/17 03:45 Phys Exam - Physical Examination Constitutional: NAD HEENT: PERRLA, sclera anicteric Neck: no nodes Respiratory: no wheezing, no rales, no rhonchi dminished bases, poor inspiratory effort Cardiovascular: RRR, no significant murmur, no rub Gastrointestinal: soft, non-tender, no distention, positive bowel sounds Musculoskeletal: no edema, pulses present, edema present Neurological: non-focal, normal sensation, moves all 4 limbs Skin: no rash, cap refill <2 seconds Dx/Plan (1) Diabetes mellitus Code(s): E11.9 - TYPE 2 DIABETES MELLITUS WITHOUT COMPLICATIONS Status: Acute (2) Essential hypertension Code(s): I10 - ESSENTIAL (PRIMARY) HYPERTENSION Status: Acute (3) Influenza A Code(s): J10.1 - FLU DUE TO OTH IDENT INFLUENZA VIRUS W OTH RESP MANIFEST Status: Acute (4) Schizophrenia Code(s): F20.9 - SCHIZOPHRENIA, UNSPECIFIED Status: Acute (5) Acute respiratory failure with hypoxia and hypercapnia Code(s): J96.01 - ACUTE RESPIRATORY FAILURE WITH HYPOXIA; J96.02 - ACUTE RESPIRATORY FAILURE WITH HYPERCAPNIA Status: Resolved (6) Hypokalemia Code(s): E87.6 - HYPOKALEMIA Status: Resolved (7) Hypoglycemia associated with type 2 diabetes mellitus Code(s): E11.649 - TYPE 2 DIABETES MELLITUS WITH HYPOGLYCEMIA WITHOUT COMA Status: Acute - Plan Plan: Continue current meds for DMII Seroquel increased yesterday, platelets stable. Pt tolerating medications well Pt requiring increased O2. Encouraged use of IS, consult pt/ot to ambulate pt pulm consulted, appreciate recs
[2017-04-28] MEDS: Oseltamivir 6 MG/ML ORAL SUSP PO SCH (09:29)
--- NOTE | 2017-04-28 09:59 | PRG ---
DATE OF SERVICE: 04/28/2017 The patient is confused, refuses to take the Tamiflu. PHYSICAL EXAMINATION: VITAL SIGNS: Temperature is 98.0, pulse 92, respirations 16, O2 sat 97, blood pressure 177/73. HEENT: Unremarkable. NECK: No JVD. CHEST: Fairly clear. CARDIAC: S1 and S2 regular. ABDOMEN: Soft. EXTREMITIES: Ischemic looking feet. LABORATORY DATA: White blood cell count 7.7, hematocrit 29.5, platelet count 64. Sodium 144, potass ium 3.1, chloride 106, CO2 31, BUN 7, creatinine 0.4, glucose 84. ASSESSMENT: 1. Status post influenza. 2. Status post acute respiratory failure. PLAN: 1. Stop the Tamiflu as she has had 5 days. 2. Deconditioning. She can likely be transferred to a shelter or skilled wherever she is going next.
[2017-04-28] MEDS ORDERED: Furosemide 40 MG/4 ML VIAL SLOW IVP SCH (10:45)
--- NOTE | 2017-04-28 12:20 | ADD-PRG ---
DATE OF SERVICE: 04/28/2017 This is an addendum to the note of Dr. Misael Acosta. Ms. Muniz is completing treatment of influenza and hospital-acquired pneumonia. She also has patricia izophrenia and at times seems confused. She demonstrates no respiratory distress. Her white count is normal. Her hemoglobin is 8.9 with hematocrit of 28.7, MCV of 118. The macrocyti c anemia is felt to be due to medication effect as her B12 and folate levels are both normal. We pato l also check a reticulocyte count for completeness to ensure there is no hemolytic process. Clinical ly, she is stable and ready for transfer to a [facility] facility.
[2017-04-28] MEDS: Sodium Chloride 0.9% 1,000 ML IV SCH (15:31)
[2017-04-28] MEDS: HumaLOG 300 UNITS/3 ML VIAL SC PRN ×2 (18:17→20:51)
[2017-04-28] MEDS: Atorvastatin Calcium 10 MG TAB PO SCH (20:49)
[2017-04-28] MEDS: Insulin Detemir 100 UNITS/ML 10 UNITS in Pre-Filled Syringe SC SCH (20:50)
[2017-04-29] MEDS: Sodium Chloride 0.9% 1,000 ML IV SCH (02:00)
[2017-04-29 04:43] LABS: Reticulocyte Count 3.8 % (0.5-1.5)
[2017-04-29 05:04] LABS: Anion Gap 11 mmol/L (10-20); BUN (Urea Nitrogen) 8 mg/dL (9.8-20.1); Calc. Creatinine Clearance 111 mL/min (70-130); Calcium 8.2 mg/dL (7.8-10.44); Carbon Dioxide 31 mmol/L (23-31); Chloride 104 mmol/L (98-107); Estimated GFR-MDRD Greater than 90; Glucose 72 mg/dL (80-115); Sodium 144 mmol/L (136-145)
[2017-04-29 05:08] LABS: Potassium 2.4 mmol/L (3.5-5.1)
[2017-04-29 05:10] LABS: Band 1 % (5-11); Hemoglobin 9.2 g/dL (12.0-16.0); Lymphocytes 16 % (21-51); MDiff Complete? YES; Macrocytosis SLIGHT = 6-15 cells (100X) (0-5/hpf); Mean Corpuscular HGB CONC 31.9 g/dL (32.0-36.0); Mean Corpuscular Hemoglobin 37.2 pg (27.0-31.0); Mean Platelet Volume 10.7 fL (7.4-10.4); Monocytes 9 % (0-10); Neutrophil 74 % (42-75); PLT Morphology Comment Appears Decreased; Platelet Count 82 thou/uL (130-400); RBC Distribution Width 12.7 % (11.5-14.5); Red Blood Cell (RBC) Count 2.47 mill/uL (4.20-5.40); White Blood Cell (WBC) Count 7.6 thou/uL (4.8-10.8)
[2017-04-29] MEDS: Potassium Chloride 20 MEQ TAB PO SCH ×2 (05:56→08:53)
[2017-04-29] MEDS: busPIRone HCl 5 MG TAB PO SCH (08:53)
[2017-04-29] MEDS: predniSONE 20 MG TAB PO SCH (08:54)
[2017-04-29] MEDS: Famotidine 20 MG TAB PER TUBE SCH (08:54)
[2017-04-29] MEDS: Ferrous Sulfate 325 MG TAB PO SCH (08:54)
[2017-04-29] MEDS: Calcium Carbonate + Vit D 1 TAB PO SCH (08:55)
[2017-04-29] MEDS: Cyanocobalamin (Vitamin B-12) 1,000 MCG TAB PO SCH (08:55)
[2017-04-29] MEDS: Bupropion 150 MG XL TAB PO SCH (08:55)
[2017-04-29] MEDS: Multivitamin W/ Minerals 1 TAB PO SCH (08:55)
--- NOTE | 2017-04-29 09:21 | PDOC.FM ---
- Subjective Subjective: No acute events overnight. Pt reports she is breathing well and denies cp, sob, nvdc, fever and chills. per nurse, pt non-compliant with IS and breathing treatments and removed IV access twice yesterday. OK to leave out for now. - Objective Vital Signs & Weight: Vital Signs (12 hours) Temp Pulse Resp BP Pulse Ox 04/29/17 07:38 98.9 F 91 16 116/69 96 04/29/17 01:42 95 16 94 L 04/28/17 22:46 95 20 92 L Weight Admit Weight 65.771 kg Weight 62.5 kg Most Recent Monitor Data Heart Rate from ECG 107 NIBP 123/70 NIBP BP-Mean 103 Respiration from ECG 26 SpO2 100 I&O: 04/28/17 04/29/17 04/30/17 06:59 06:59 06:59 Intake Total 1748 2640 Output Total 3650 1101 Balance -1902 1539 Result Diagrams: 04/29/17 03:59 04/29/17 03:59 Phys Exam - Physical Examination Constitutional: NAD HEENT: PERRLA, sclera anicteric Neck: no nodes, no JVD Respiratory: no wheezing, no rhonchi diminished bases, poor effort Cardiovascular: RRR, no significant murmur, no rub Gastrointestinal: soft, non-tender, no distention, positive bowel sounds Musculoskeletal: no edema, pulses present Neurological: non-focal, moves all 4 limbs Skin: no rash Dx/Plan (1) Diabetes mellitus Code(s): E11.9 - TYPE 2 DIABETES MELLITUS WITHOUT COMPLICATIONS Status: Acute (2) Essential hypertension Code(s): I10 - ESSENTIAL (PRIMARY) HYPERTENSION Status: Acute (3) Influenza A Code(s): J10.1 - FLU DUE TO OTH IDENT INFLUENZA VIRUS W OTH RESP MANIFEST Status: Acute (4) Schizophrenia Code(s): F20.9 - SCHIZOPHRENIA, UNSPECIFIED Status: Acute (5) Acute respiratory failure with hypoxia and hypercapnia Code(s): J96.01 - ACUTE RESPIRATORY FAILURE WITH HYPOXIA; J96.02 - ACUTE RESPIRATORY FAILURE WITH HYPERCAPNIA Status: Resolved (6) Hypokalemia Code(s): E87.6 - HYPOKALEMIA Status: Resolved (7) Hypoglycemia associated with type 2 diabetes mellitus Code(s): E11.649 - TYPE 2 DIABETES MELLITUS WITH HYPOGLYCEMIA WITHOUT COMA Status: Acute - Plan Plan: pt medically stable and would benefit from some short term rehab to recover from deconditioning pts non-compliance an issue in trying to resolve respiratory status will begin to facilitate DC continue nebs, continue IS doing well on current seroquel dose
--- NOTE | 2017-04-29 10:29 | PRG ---
DATE OF SERVICE: 04/29/2017 SUBJECTIVE: The patient is confused, but pleasant and is in no distress. PHYSICAL EXAMINATION: VITAL SIGNS: Temperature 98.9, pulse 91, respirations 16, O2 sat 96%, blood pressure 116/69. HEENT: Unremarkable. NECK: No JVD. LUNGS: Clear. CARDIAC: S1 and S2 regular. ABDOMEN: Soft. EXTREMITIES: No edema. ASSESSMENT: Status post respiratory failure related to influenza. RECOMMENDATIONS: She is probably ready to go to a [facility]. I will go ahead and stop her nebuli zation treatments and IV fluids. No further recommendations from my standpoint. Pulmonary will sign off the case. Please recall if further assistance is needed.
[2017-04-29 11:43] VITALS: BP 132/72; TEMP 97.8
[2017-04-29 14:19] LABS: Anion Gap 12 mmol/L (10-20); BUN (Urea Nitrogen) 8 mg/dL (9.8-20.1); Calc. Creatinine Clearance 100 mL/min (70-130); Calcium 8.8 mg/dL (7.8-10.44); Carbon Dioxide 29 mmol/L (23-31); Chloride 105 mmol/L (98-107); Estimated GFR-MDRD Greater than 90; Glucose 207 mg/dL (80-115); Potassium 4.3 mmol/L (3.5-5.1); Sodium 142 mmol/L (136-145)
--- NOTE | 2017-04-29 15:26 | PRG ---
DATE OF SERVICE: 04/29/2017 Ms. Muniz is resting quietly in bed. We are still awaiting SNF placement. Potassium has dropped to 2.4 and this will be corrected. Clinically, she remains improved, though she is physically decon ditioned.
[2017-04-30] MEDS ORDERED: predniSONE 20 MG TAB PO SCH (08:00)
--- NOTE | 2017-05-03 17:49 | EKG ---
Test Reason : UNRESPONSIVE Blood Pressure : / mmHG Vent. Rate : 111 BPM Atrial Rate : 111 BPM P-R Int : 148 ms QRS Dur : 148 ms QT Int : 380 ms P-R-T Axes : 030 -33 -01 degrees QTc Int : 516 ms Sinus tachycardia Left axis deviation Right bundle branch block Abnormal ECG Confirmed by BLANCA HSU D.O. ([id number]), desk editor GIORGIO STAPLETON ([id number] on 05/03/2017 5:48:05 PM Referred By: JAH HSU Confirmed By:BLANCA HSU D.O.
== END 2017-04-29 13:50 | DRG 871 ==
LOC: ERS 00:58 → ERHOLD 03:38 → CCU 12:11 → T4-A 04-25 12:57
PROVIDERS: ADMIT Emergency Medicine; ATTEND Emergency Medicine
PROC: 02HV33Z Insertion of Infusion Device into Superior Vena Cava, Percutaneous Approach (ICD-10-PCS; principal; 2017-04-22)
PROC: 5A1945Z Respiratory Ventilation, 24-96 Consecutive Hours (ICD-10-PCS; 2017-04-22)
PROC: 0BH17EZ Insertion of Endotracheal Airway into Trachea, Via Natural or Artificial Opening (ICD-10-PCS; 2017-04-22)
PROC: 0BP1XDZ Removal of Intraluminal Device from Trachea, External Approach (ICD-10-PCS; 2017-04-24)
DX: A41.89 Other specified sepsis (principal); J10.00 Influenza due to other identified influenza virus with unspecified type of pneumonia; R65.21 Severe sepsis with septic shock; D61.818 Other pancytopenia; J96.01 Acute respiratory failure with hypoxia; D69.59 Other secondary thrombocytopenia; J96.02 Acute respiratory failure with hypercapnia; E11.649 Type 2 diabetes mellitus with hypoglycemia without coma; E87.0 Hyperosmolality and hypernatremia; I24.8 Other forms of acute ischemic heart disease; F20.0 Paranoid schizophrenia; D53.9 Nutritional anemia, unspecified; K21.9 Gastro-esophageal reflux disease without esophagitis; E87.6 Hypokalemia; I25.10 Atherosclerotic heart disease of native coronary artery without angina pectoris; F31.9 Bipolar disorder, unspecified; I10 Essential (primary) hypertension; Z95.2 Presence of prosthetic heart valve; Z85.01 Personal history of malignant neoplasm of esophagus; Z95.1 Presence of aortocoronary bypass graft; Z79.82 Long term (current) use of aspirin
CPT/HCPCS: 31500; 36415; 36416; 51702; 70450; 71045; 80048; 80053; 80202; 81003; 81015; 82274; 82553; 82607; 82747; 82805; 83605; 83735; 83880; 84145; 84484; 85007; 85025; 85027; 85046; 87040; 87086; 87899; 93005; 93306; 94002; 94003; 94640; 94760; 96361; 96365; 96366; 96367; 99292; G8978-GP-CN; G8979-GP-CK; G8987-GO-CM; G8988-GO-CJ; G8996-GN-CK; G8997-GN-CK; J1815; J1940; J1956; J2270; J2543; J2704; J2920; J3010; J3370; J3480; J7050; J7506; J7620